=== PATIENT | female | born 1985 | race Caucasian/White ===

== ENCOUNTER 2017-07-01 12:28 | Inpatient (IN) ==
--- NOTE | 2017-07-01 13:05 | Emergency Department Note ---
Disposition Clinical Impression: Suicidal ideation Depression Qualifiers: Depression Type: unspecified Qualified Code(s): F32.9 - Major depressive disorder, single episode, unspecified Disposition: Admitted As Inpatient Time of Disposition: 16:24 Psych HPI - General Chief Complaint: ED Psychiatric Symptoms Stated Complaint: scott evsiomara Time Seen by Provider: 07/01/17 12:36 Source: patient Mode of arrival: ambulatory Limitations: no limitations Nursing Notes Reviewed: Yes Vital Signs Reviewed: Yes - History of Present Illness HPI Narrative: 31-year-old female presenting to the emergency Department chief complaint suicidal ideation. Patient has previously been admitted for similar symptoms approximately 1 year ago. Patient denies any specific plan. Patient also admits to homicidal ideation but not towards a specific person and with no specific plan. Patient denies any ingestion prior to arrival. Patient has new prescriptions for depression including BuSpar and Cymbalta. She states she recently lost her child and is therefore under an undue amount of stress. Patient denies auditory or visual hallucinations at this time. Patient denies any medical issues or concerns at this time. - Related Data Home Medications Medication Instructions Recorded Confirmed Buspirone HCl [Buspar] 15 mg PO TID 08/25/16 08/25/16 Tizanidine HCl 4 mg PO Q8H PRN 08/25/16 08/25/16 Previous Rx's Medication Instructions Recorded Duloxetine HCl [Cymbalta] 60 mg PO BID #60 capsule. 08/12/16 Gabapentin [Neurontin] 1,200 mg PO HS #90 capsule 08/12/16 Gabapentin [Neurontin] 800 mg PO 0900,1500 #120 capsule 08/12/16 Lurasidone HCl [Latuda] 160 mg PO HS #60 tablet 08/12/16 Mirtazapine [Remeron] 30 mg PO HS #60 tablet 08/12/16 Ondansetron HCl [Zofran] 4 mg PO Q6HR PRN #20 tablet 08/29/16 OxyCODONE/APAP 7.5/325 [Percocet 1 each PO Q6HR PRN #20 tablet 08/29/16 7.5/325 MG] Sulfamethoxazole/Trimeth DS 1 each PO BID #24 tablet 08/29/16 [Bactrim DS] cephALEXin [Keflex] 500 mg PO QID 10 Days capsule 12/07/16 Clindamycin [Cleocin] 450 mg PO TID 10 Days capsule 12/17/16 HYDROcodone/Acet 5/325 mg [[place] 1 tab PO Q6H PRN #6 tab 12/17/16 5-325 mg] Ondansetron ODT [Zofran ODT] 4 mg SL Q6HR PRN #14 tab.rapdis 12/18/16 Loratadine [Claritin] 10 mg PO DAILY #14 capsule 01/21/17 HYDROcodone/Acet 5/325 mg [[place] 1 tab PO Q6H PRN #8 tab 01/30/17 5-325 mg] Ondansetron ODT [Zofran ODT] 4 mg SL Q6HR PRN #12 tab.rapdis 01/30/17 Sulfamethoxazole/Trimeth DS 1 each PO BID #10 tablet 01/30/17 [Bactrim DS] Ondansetron [Zofran ODT] 8 mg SL Q8H PRN #10 tab.rapdis 04/17/17 Allergies Allergy/AdvReac Type Severity Reaction Status Date / Time ceftriaxone [From Rocephin] Allergy Anaphylaxis Verified 01/30/17 19:23 clindamycin Allergy Anaphylaxis Verified 01/30/17 19:24 diphenhydramine Allergy Hives Verified 01/30/17 19:23 [From Benadryl] divalproex sodium Allergy Hives Verified 01/30/17 19:23 [From Depakote] Doxepin Allergy Hives Verified 01/30/17 19:23 famotidine [From Pepcid] Allergy Hives Verified 01/30/17 19:23 morphine Allergy Hives Verified 01/30/17 19:23 naproxen Allergy Rash Verified 01/30/17 19:23 Penicillins Allergy Anaphylaxis Verified 01/30/17 19:23 tramadol Allergy Hives Verified 01/30/17 19:23 Tramazoline Allergy Hives Verified 01/30/17 19:23 ziprasidone [From Geodon] Allergy Hives Verified 01/21/17 02:08 sertraline [From Zoloft] AdvReac Depression Verified 12/07/16 21:51 All systems ED: reviewed and negative except as stated. Constitutional: Denies: fever, chills, weakness Eyes: Reports: as per HPI ENT ED: Reports: as per HPI Cardiovascular: Denies: chest pain, palpitations Respiratory: Denies: cough, dyspnea, wheezes Gastrointestinal: Denies: abdominal pain, diarrhea, constipation Genitourinary: Reports: as per HPI Musculoskeletal: Reports: as per HPI Integumentary: Denies: rash, abrasion, lesions Neurological: Reports: as per HPI Psychiatric: Reports: depression, suicidal thoughts, homicidal thoughts. Denies : auditory hallucinations, visual hallucinations Endocrine: Reports: as per HPI Hematological/Lymphatic: Reports: as per HPI Allergic/Immunologic: Reports: as per HPI Past Medical History - Past Medical History Attestation: Yes The following information was validated with the patient. Medical history: Reports: kidney stones Surgical history: Reports: appendectomy, cholecystectomy, herniorrhaphy, hysterectomy, ureteral stent Psychiatric history: Reports: anxiety, bipolar, depression, prior suicide attempt, previous psychiatric hospitalization DIRECTOR COMPENSATION history: Reports: polycystic ovary syndrome - Social History Smoking Status: Current every day smoker Smokeless Tobacco Status: No Alcohol use: Reports: none Drug use: Reports: marijuana Physical Exam - General Limitations: no limitations General appearance: alert, anxious - Head Head exam: atraumatic, normocephalic, normal inspection - Eye Eye exam: Present: normal appearance, PERRL - Chest Chest inspection: Present: normal inspection, symmetric chest wall rise. Absent : tenderness - Respiratory Respiratory exam: Present: normal lung sounds bilaterally. Absent: respiratory distress, wheezes - Cardiovascular Cardiovascular exam: Present: regular rate, normal rhythm, normal heart sounds - Abdominal Exam Abdominal exam: Present: soft, Non-Tender. Absent: distention, guarding, rebound - Extremities Exam Extremities exam: Present: normal inspection, full ROM - Neurological Exam Neurological exam: Present: alert, oriented X3, normal gait - Psychiatric Psychiatric exam: Present: depressed, homicidal ideation, suicidal ideation - Skin Skin exam: Present: warm, intact Course Course Narrative: 31-year-old female presenting to the emergency department with chief complaint of suicidal ideation. She denies a specific plan at this time. We will obtain basic lab work and UA and toxicology panel. Once the results have returned we will reach out to [facility] to determine disposition of the patient. - Reevaluation(s) Reevaluation #1: Patient has been accepted by one may be admitted here at [facility] for inpatient psychiatric care. Time: 16:23 Vital Signs Temperature 98.6 F 07/01/17 12:37 Pulse Rate 92 07/01/17 12:37 Respiratory Rate 20 07/01/17 12:37 Blood Pressure 161/103 07/01/17 12:37 O2 Sat by Pulse Oximetry 96 07/01/17 12:37 Temperature 98.6 F 07/01/17 12:37 Pulse Rate 92 07/01/17 12:37 Respiratory Rate 20 07/01/17 12:37 Blood Pressure 161/103 07/01/17 12:37 O2 Sat by Pulse Oximetry 96 07/01/17 12:37 Oxygen Delivery Oxygen Delivery Room Air Psych - Lab Data Result diagrams: 07/01/17 13:01 07/01/17 13:01 Lab Results 07/01/17 07/01/17 07/01/17 Range/Units 13:01 13:01 13:49 WBC 8.7 (4.3-11.1) K/mcL RBC 4.72 (3.82-4.97) M/mcL Hgb 14.7 (11.5-15.4) g/dL Hct 43.2 (35.3-44.9) % MCV 91.5 (83.0-100.0) fL MCH 31.1 (28.0-33.3) pg MCHC 34.0 (31.6-35.5) g/dL RDW 12.6 (11.5-14.5) % Plt Count 254 (140-400) K/mcL MPV 10.6 (9.4-12.4) fL Immature Gran % 0.3 (0-4) % Seg Neutrophils % 72.0 % Lymphocytes % 18.8 % Monocytes % 4.2 % Eosinophils % 3.9 % Basophils % 0.8 % Neutrophils # 6.2 (1.6-8.9) K/mcL Lymphocytes # 1.6 (0.6-4.6) K/mcL Monocytes # 0.4 (0.0-1.3) K/mcL Eosinophils # 0.3 (0.0-0.6) K/mcL Basophils # 0.1 (0.0-0.2) K/mcL Sodium 141 (136-145) mEq/L Potassium 3.3 L (3.5-4.5) mEq/L Chloride 105 (98-109) mEq/L Carbon Dioxide 25 (19-29) mEq/L BUN 4 L (7-20) mg/dL Creatinine 0.91 (0.57-1.11) mg/dL Est GFR ( Amer) > 60 (> 60) Est GFR (Non-Af Amer) > 60 (> 60) BUN/Creatinine Ratio 4 L (6-26) Glucose 149 H (70-99) mg/dL Calculated Osmolality 292 (280-300) Calcium 9.0 (8.6-10.8) mg/dL Urine Color Yellow (Yellow) Urine Clarity Cloudy A (Clear) Urine pH 7.0 (5.0-8.0) pH Units Ur Specific [place] 1.023 (1.010-1.025) Urine Protein Negative (Neg-Trace) mg/dL Urine Glucose (UA) Normal (Normal) mg/dL Urine Ketones Negative (Negative) mg/dL Urine Blood Negative (Negative) Urine Nitrite Positive A (Negative) Urine Bilirubin Negative (Negative) Urine Urobilinogen Normal (Normal) mg/dL Ur Leukocyte Esterase Negative (Negative) Urine Microscopic RBC 3-5 H (0-3) per hpf Urine Microscopic WBC 3-5 H (0-3) per hpf Ur Squamous Epith Cells Many H (None-Few) per lpf Urine Bacteria Few (None-Few) per hpf Hyaline Casts None Seen (None-Few) per lpf Urine Test (Negative) Salicylates < 5.0 L (15-30) mg/dL Urine Opiates Screen (Ijirga=244) ng/mL Acetaminophen < 1.0 L (10-30) mcg/mL Ur Barbiturates Screen (Gqysjc=932) ng/mL Ur Phencyclidine Scrn (Cutoff=25) ng/mL Ur Amphetamines Screen (Rsyvar=8571) ng/mL U Benzodiazepines Scrn (Qiskxf=807) ng/mL Urine Cocaine Screen (Cutoff= 300) ng/mL U Marijuana (THC) Screen (Cutoff = 50) ng/mL Ethyl Alcohol < 10 (0-10) mg/dL 07/01/17 07/01/17 Range/Units 13:49 13:49 WBC (4.3-11.1) K/mcL RBC (3.82-4.97) M/mcL Hgb (11.5-15.4) g/dL Hct (35.3-44.9) % MCV (83.0-100.0) fL MCH (28.0-33.3) pg MCHC (31.6-35.5) g/dL RDW (11.5-14.5) % Plt Count (140-400) K/mcL MPV (9.4-12.4) fL Immature Gran % (0-4) % Seg Neutrophils % % Lymphocytes % % Monocytes % % Eosinophils % % Basophils % % Neutrophils # (1.6-8.9) K/mcL Lymphocytes # (0.6-4.6) K/mcL Monocytes # (0.0-1.3) K/mcL Eosinophils # (0.0-0.6) K/mcL Basophils # (0.0-0.2) K/mcL Sodium (136-145) mEq/L Potassium (3.5-4.5) mEq/L Chloride (98-109) mEq/L Carbon Dioxide (19-29) mEq/L BUN (7-20) mg/dL Creatinine (0.57-1.11) mg/dL Est GFR ( Amer) (> 60) Est GFR (Non-Af Amer) (> 60) BUN/Creatinine Ratio (6-26) Glucose (70-99) mg/dL Calculated Osmolality (280-300) Calcium (8.6-10.8) mg/dL Urine Color (Yellow) Urine Clarity (Clear) Urine pH (5.0-8.0) pH Units Ur Specific [place] (1.010-1.025) Urine Protein (Neg-Trace) mg/dL Urine Glucose (UA) (Normal) mg/dL Urine Ketones (Negative) mg/dL Urine Blood (Negative) Urine Nitrite (Negative) Urine Bilirubin (Negative) Urine Urobilinogen (Normal) mg/dL Ur Leukocyte Esterase (Negative) Urine Microscopic RBC (0-3) per hpf Urine Microscopic WBC (0-3) per hpf Ur Squamous Epith Cells (None-Few) per lpf Urine Bacteria (None-Few) per hpf Hyaline Casts (None-Few) per lpf Urine Test Negative (Negative) Salicylates (15-30) mg/dL Urine Opiates Screen Negative (Dzjcqj=219) ng/mL Acetaminophen (10-30) mcg/mL Ur Barbiturates Screen Negative (Jgmibl=952) ng/mL Ur Phencyclidine Scrn Negative (Cutoff=25) ng/mL Ur Amphetamines Screen Negative (Mwvypb=9830) ng/mL U Benzodiazepines Scrn Negative (Tgpxxq=576) ng/mL Urine Cocaine Screen Negative (Cutoff= 300) ng/mL U Marijuana (THC) Screen Negative (Cutoff = 50) ng/mL Ethyl Alcohol (0-10) mg/dL Psychiatric Medical Clearance - Medical Clearance Checklist Medical History: Morbid obesity with BMI of 45.0-49.9, adult (Acute) Ureteral stone with hydronephrosis (Resolved) Flank pain (Acute) Suicidal ideation (Acute) Depressed bipolar affective disorder (Chronic) Anxiety (Chronic) Akathisia (Acute) Borderline personality disorder (Chronic) Acute psychosis (Acute) Depression (Chronic) Nicotine dependence (Acute) Medical clearance for psychiatric admission (Acute) Cellulitis, abdominal wall (Acute) UTI (urinary tract infection) (Ruled-out) Cellulitis of periumbilical region (Acute) DVT prophylaxis (Acute) Low urine output (Acute) Atypical chest pain (Inactive) Bronchitis (Inactive) Cellulitis of great toe of right foot (Inactive) Cellulitis of great toe, right (Inactive) Contact dermatitis (Inactive) Cough (Inactive) Flank pain (Inactive) Flank pain (Inactive) Flank pain (Inactive) Head ache (Inactive) Hematuria (Inactive) Hematuria (Inactive) History of kidney stones (Inactive) Marijuana abuse (Inactive) Migraine (Inactive) Nausea & vomiting (Inactive) Obesity (Inactive) Painful swallowing (Inactive) Paronychia of great toe of right foot (Inactive) Pyelonephritis (Inactive) Pyelonephritis (Inactive) Right flank pain (Inactive) Toe pain, right (Inactive) UTI (urinary tract infection) (Inactive) Upper respiratory infection (Inactive) No Social History Section defined Current Vitals: Last Vital Signs Temp 98.6 F 07/01/17 12:37 Pulse 92 07/01/17 12:37 Resp 20 07/01/17 12:37 BP 161/103 07/01/17 12:37 Pulse Ox 96 07/01/17 12:37 Psychiatric Lab Panel: Drug Levels and Toxicity 07/01/17 07/01/17 13:01 13:49 Urine Opiates Screen Negative Acetaminophen < 1.0 L Ur Barbiturates Screen Negative Ur Phencyclidine Scrn Negative Ur Amphetamines Screen Negative U Benzodiazepines Scrn Negative Urine Cocaine Screen Negative U Marijuana (THC) Screen Negative Ethyl Alcohol < 10 Abnormal Labs: Abnormal lab results Potassium 3.3 mEq/L (3.5-4.5) L 07/01/17 13:01 BUN 4 mg/dL (7-20) L 07/01/17 13:01 BUN/Creatinine Ratio 4 (6-26) L 07/01/17 13:01 Glucose 149 mg/dL (70-99) H 07/01/17 13:01 Urine Clarity Cloudy (Clear) A 07/01/17 13:49 Urine Nitrite Positive (Negative) A 07/01/17 13:49 Urine Microscopic RBC 3-5 per hpf (0-3) H 07/01/17 13:49 Urine Microscopic WBC 3-5 per hpf (0-3) H 07/01/17 13:49 Ur Squamous Epith Cells Many per lpf (None-Few) H 07/01/17 13:49 Salicylates < 5.0 mg/dL (15-30) L 07/01/17 13: Acetaminophen < 1.0 mcg/mL (10-30) L 07/01/17 13:01 Statement of Medical Clearance: I have evaluated the patient, reviewed diagnostic information, and certify that the patient's medical condition is sufficiently stable that transfer to the psychiatric unit does not pose a significant risk of deterioration.
[2017-07-01 13:16] LABS: Basophils # 0.1 K/mcL (0.0-0.2); Basophils % 0.8 %; Eosinophils # 0.3 K/mcL (0.0-0.6); Eosinophils % 3.9 %; Hematocrit 43.2 % (35.3-44.9); Hemoglobin 14.7 g/dL (11.5-15.4); Immature Granulocytes % 0.3 % (0-4); Lymphocytes # 1.6 K/mcL (0.6-4.6); Lymphocytes % 18.8 %; Mean Corpuscular Hemoglobin 31.1 pg (28.0-33.3); Mean Corpuscular Volume 91.5 fL (83.0-100.0); Mean Platelet Volume 10.6 fL (9.4-12.4); Monocytes # 0.4 K/mcL (0.0-1.3); Monocytes % 4.2 %; Neutrophils # 6.2 K/mcL (1.6-8.9); Platelet Count 254 K/mcL (140-400); Red Blood Count 4.72 M/mcL (3.82-4.97); Red Cell Distribution Width 12.6 % (11.5-14.5)
[2017-07-01 13:22] LABS: BUN/Creatinine Ratio 4 (6-26); Carbon Dioxide 25 mEq/L (19-29); Chloride 105 mEq/L (98-109); Glucose 149 mg/dL (70-99); Osmolality,Calculated 292 (280-300); Potassium 3.3 mEq/L (3.5-4.5); Sodium 141 mEq/L (136-145); eGFR For African Americans > 60 (> 60); eGFR For Non-African Americans > 60 (> 60)
[2017-07-01 13:24] LABS: Acetaminophen < 1.0 mcg/mL (10-30); Blood Urea Nitrogen 4 mg/dL (7-20); Ethanol < 10 mg/dL (0-10); Salicylate < 5.0 mg/dL (15-30)
--- NOTE | 2017-07-01 13:29 | Emergency Department Note ---
START Narrative - START START: I examined this patient and my medical decision-making was reviewed with the Resident Physician. I agree with the documented findings, disposition and treatment plan as described except to the extent set forth below. 31-year-old female presents the ER with suicidal thoughts as well as homicidal thoughts. Patient under lots of stress due to some family issues. Previous psychiatric problems in the past. Patient will need to be evaluated by psychiatry.
[2017-07-01 13:54] LABS: Bilirubin,Urine Negative (Negative); Blood,Urine Negative (Negative); Clarity,Urine Cloudy (Clear); Color,Urine Yellow (Yellow); Glucose,Urine (UA) Normal (Normal); Ketones,Urine Negative (Negative); Leukocyte Esterase,Urine Negative (Negative); Nitrite,Urine Positive (Negative); Protein,Urine Negative (Neg-Trace); Specific Gravity,Urine 1.023 (1.010-1.025); Urobilinogen,Urine Normal (Normal)
[2017-07-01 13:56] LABS: Bacteria,Urine Few per hpf (None-Few); Hyaline Casts,Urine None Seen per lpf (None-Few); Squamous Epithelial Cell,Urine Many per lpf (None-Few)
[2017-07-01 14:00] LABS: Amphetamine Screen,Urine Negative ng/mL (Cutoff=1000); Barbiturate Screen,Urine Negative ng/mL (Cutoff=200); Benzodiazepines Screen,Urine Negative ng/mL (Cutoff=200); Cannabinoid Screen,Urine Negative ng/mL (Cutoff = 50); Cocaine Screen,Urine Negative ng/mL (Cutoff= 300); Opiate Screen,Urine Negative ng/mL (Cutoff=300); Phencyclidine Screen,Urine Negative ng/mL (Cutoff=25)
[2017-07-01] MEDS ORDERED: *HR* LORazepam 1 MG TABLET PO PRN (17:23)
[2017-07-01] MEDS ORDERED: MOM Conc 10 ML UD.LIQ PO PRN (17:23)
[2017-07-01] MEDS ORDERED: *HR* LORazepam 2 MG/ML VIAL IM PRN (17:23)
[2017-07-01] MEDS ORDERED: Mag Hydrox/Al Hydrox/Simeth 30 ML UDC PO PRN (17:23)
[2017-07-01] MEDS ORDERED: Haloperidol Lactate 5 MG/ML VIAL IM PRN (17:23)
[2017-07-01] MEDS: Nicotine 21 MG PATCH.TD24 TD SCH (18:07)
[2017-07-01] MEDS: hydrOXYzine pamoate 25 MG CAPSULE PO PRN (19:24)
[2017-07-01] MEDS: traZODone 50 MG TABLET PO PRN (23:23)
[2017-07-02] MEDS: hydrOXYzine pamoate 25 MG CAPSULE PO PRN ×3 (02:55→21:45)
[2017-07-02] MEDS: Nicotine 21 MG PATCH.TD24 TD SCH (08:54)
--- NOTE | 2017-07-02 12:28 | Psychiatry History & Physical ---
Date of Encounter: 07/02/17 Time of Encounter: 12:22 History of Present Illness Patient Stated Chief Complaint: suicidal ideation Medicare Admission Attestation: For traditional Medicare patients the provided hospital inpatient services are reasonable and necessary and in the case of services not specified as inpatient -only under 42 CFR 419.22 (n), that they are appropriately provided as inpatient services in accordance 42 CFR 412.3. For Critical Access Hospital the patient may reasonably be expected to be discharged or transferred to a hospital within 96 hours after admission to the Critical Access Hospital. Admitted From: Home Plans for Post Hospital Care: Home History of Present Illness: Ms. Stafford is a 31 year old female who was admitted secondary to SI. Childrens Services recently removed children from home on the basis of suspected drug use. Client denies any drug use. Client claims her grandparents made the referral to [facility] because they do not like her new . Client has been cutting since children removed. Multiple scratch siu on abdomen. Offered Tetanus update but client reports she had one two years ago. Already linked with services. Claims she is diagnosed with "a bunch of stuff." Borderline Personality Disorder likely primary diagnosis. Denies medical problems other than recurrent kidney stones. Recently moved and only has some of her home meds. Prescribed Cymbalta and Buspar. However, client claims she does best when she also has her Latuda, along with Vistaril and low dose Seroquel for sleep. Will restart med regimen that works for her. Past Med Surg Social Fam HX - Past Medical History Medical history: kidney stones - Past Psychiatric History Psychiatric history: Reports: depression, PTSD Family psychiatric history: Unknown Family History of Suicide: Unknown - Past Surgical History Surgical History: appendectomy, cholecystectomy, hysterectomy, ureteral stent - Social History Smoking Status: Current every day smoker Smokeless Tobacco Status: No Alcohol use: none Drug use: marijuana - Family History Mother Living Status: Still Living Medications & Allergies Duloxetine HCl [Cymbalta] 60 mg PO BID #60 capsule. 08/12/16 [Rx] Tizanidine HCl 4 mg PO Q8H PRN 08/25/16 [History] Buspirone HCl [Buspar] 10 mg PO BID 07/01/17 [History] 3 Allergy/AdvReac Type Severity Reaction Status Date / Time ceftriaxone [From Rocephin] Allergy Anaphylaxis Verified 01/30/17 19:23 clindamycin Allergy Anaphylaxis Verified 01/30/17 19:24 diphenhydramine Allergy Hives Verified 01/30/17 19:23 [From Benadryl] divalproex sodium Allergy Hives Verified 01/30/17 19:23 [From Depakote] Doxepin Allergy Hives Verified 01/30/17 19:23 famotidine [From Pepcid] Allergy Hives Verified 01/30/17 19:23 morphine Allergy Hives Verified 01/30/17 19:23 naproxen Allergy Rash Verified 01/30/17 19:23 Penicillins Allergy Anaphylaxis Verified 01/30/17 19:23 tramadol Allergy Hives Verified 01/30/17 19:23 Tramazoline Allergy Hives Verified 01/30/17 19:23 ziprasidone [From Geodon] Allergy Hives Verified 01/21/17 02:08 sertraline [From Zoloft] AdvReac Depression Verified 12/07/16 21:51 Review of Systems Constitutional: Denies: fever, chills, weakness, weight change Eyes: Denies: eye pain, vision change Ears, Nose, Throat: Denies: ear pain, throat pain, dental pain, hearing loss, congestion Cardiovascular: Denies: chest pain, palpitations, dyspnea on exertion Respiratory: Denies: cough, dyspnea, wheezes Gastrointestinal: Denies: abdominal pain, nausea, vomiting, diarrhea, constipation Genitourinary male: Denies: urgency, dysuria, frequency, genital lesions Genitourinary female: Denies: urgency, dysuria, frequency, abnormal menses, dyspareunia Musculoskeletal: Denies: joint swelling, joint pain Integumentary: Denies: rash, lesions, pruritus Neurological: Denies: headache, weakness, numbness, memory loss Endocrine: Denies: fatigue, heat or cold intolerance Hematologic/Lymphatic: Denies: easy bruising, lymphadenopathy Allergic/Immunologic: Denies: urticaria, itchy eyes Mental Status Exam Patient orientation: Yes Person, Yes Time, Yes Place Level of alertness: Alert Patient appearance: Appropriate Behavior: calm, cooperative Psychomotor activity: Normal Eye contact: Maintains Eye Contact Mood description: Depressed, Irritable Affect description: congruent with mood Speech pattern: Normal rate, Normal rhythm, Normal tone Speech volume: Normal Thought process: Linear Thought content: Yes Suicidal ideation, No Homicidal ideation, No Overt delusions Perceptual disturbances: No Auditory hallucinations, No Visual hallucinations Attention span: Capable of Focused Attention Memory description: Grossly Intact Patient reliability: Reliable Historian Intelligence estimate: Average Judgment: Limited Insight: Minimal Exam - HEENT Head exam IM: Present: atraumatic Eye exam IM: Present: EOMI ENT exam IM: Present: mucous membranes moist - Neurological Neurological exam IM: Present: alert, oriented X3 - Respiratory Respiratory exam IM: Present: CTAB - GI/Abdominal GI/Abdominal exam IM: Present: normal bowel sounds - Extremities Extremities exam IM: Present: full ROM - Skin Skin exam IM: Present: normal color Results - Vital Signs Vital signs: Temp Pulse Resp BP Pulse Ox 97.4 F L 90 20 132/93 96 07/02/17 09:00 07/02/17 09:00 07/02/17 09:00 07/02/17 09:00 07/01/17 12:37 - Labs Labs: Laboratory Last Values WBC 8.7 K/mcL (4.3-11.1) 07/01/17 13:01 RBC 4.72 M/mcL (3.82-4.97) 07/01/17 13:01 Hgb 14.7 g/dL (11.5-15.4) 07/01/17 13:01 Hct 43.2 % (35.3-44.9) 07/01/17 13:01 MCV 91.5 fL (83.0-100.0) 07/01/17 13:01 MCH 31.1 pg (28.0-33.3) 07/01/17 13:01 MCHC 34.0 g/dL (31.6-35.5) 07/01/17 13:01 RDW 12.6 % (11.5-14.5) 07/01/17 13:01 Plt Count 254 K/mcL (140-400) 07/01/17 13:01 MPV 10.6 fL (9.4-12.4) 07/01/17 13:01 Immature Gran % 0.3 % (0-4) 07/01/17 13:01 Seg Neutrophils % 72.0 % 07/01/17 13:01 Lymphocytes % 18.8 % 07/01/17 13:01 Monocytes % 4.2 % 07/01/17 13:01 Eosinophils % 3.9 % 07/01/17 13:01 Basophils % 0.8 % 07/01/17 13:01 Neutrophils # 6.2 K/mcL (1.6-8.9) 07/01/17 13:01 Lymphocytes # 1.6 K/mcL (0.6-4.6) 07/01/17 13:01 Monocytes # 0.4 K/mcL (0.0-1.3) 07/01/17 13:01 Eosinophils # 0.3 K/mcL (0.0-0.6) 07/01/17 13:01 Basophils # 0.1 K/mcL (0.0-0.2) 07/01/17 13:01 Sodium 141 mEq/L (136-145) 07/01/17 13:01 Potassium 3.3 mEq/L (3.5-4.5) L 07/01/17 13: Chloride 105 mEq/L (98-109) 07/01/17 13:01 Carbon Dioxide 25 mEq/L (19-29) 07/01/17 13:01 BUN 4 mg/dL (7-20) L 07/01/17 13: Creatinine 0.91 mg/dL (0.57-1.11) 07/01/17 13:01 Est GFR ( Amer) > 60 (> 60) 07/01/17 13:01 Est GFR (Non-Af Amer) > 60 (> 60) 07/01/17 13:01 BUN/Creatinine Ratio 4 (6-26) L 07/01/17 13:01 Glucose 149 mg/dL (70-99) H 07/01/17 13: Calculated Osmolality 292 (280-300) 07/01/17 13: Calcium 9.0 mg/dL (8.6-10.8) 07/01/17 13:01 Urine Color Yellow (Yellow) 07/01/17 13:49 Urine Clarity Cloudy (Clear) A 07/01/17 13:49 Urine pH 7.0 pH Units (5.0-8.0) 07/01/17 13:49 Ur Specific [place] 1.023 (1.010-1.025) 07/01/17 13:49 Urine Protein Negative mg/dL (Neg-Trace) 07/01/17 13:49 Urine Glucose (UA) Normal mg/dL (Normal) 07/01/17 13:49 Urine Ketones Negative mg/dL (Negative) 07/01/17 13:49 Urine Blood Negative (Negative) 07/01/17 13:49 Urine Nitrite Positive (Negative) A 07/01/17 13:49 Urine Bilirubin Negative (Negative) 07/01/17 13:49 Urine Urobilinogen Normal mg/dL (Normal) 07/01/17 13:49 Ur Leukocyte Esterase Negative (Negative) 07/01/17 13:49 Urine Microscopic RBC 3-5 per hpf (0-3) H 07/01/17 13:49 Urine Microscopic WBC 3-5 per hpf (0-3) H 07/01/17 13:49 Ur Squamous Epith Cells Many per lpf (None-Few) H 07/01/17 13:49 Urine Bacteria Few per hpf (None-Few) 07/01/17 13:49 Hyaline Casts None Seen per lpf (None-Few) 07/01/17 13:49 Urine Test Negative (Negative) 07/01/17 13:49 Salicylates < 5.0 mg/dL (15-30) L 07/01/17 13:01 Urine Opiates Screen Negative ng/mL (Dehfuu=289) 07/01/17 13:49 Acetaminophen < 1.0 mcg/mL (10-30) L 07/01/17 13:01 Ur Barbiturates Screen Negative ng/mL (Dcvojs=599) 07/01/17 13:49 Ur Phencyclidine Scrn Negative ng/mL (Cutoff=25) 07/01/17 13:49 Ur Amphetamines Screen Negative ng/mL (Zhwsdl=3576) 07/01/17 13:49 U Benzodiazepines Scrn Negative ng/mL (Yrtceb=180) 07/01/17 13:49 Urine Cocaine Screen Negative ng/mL (Cutoff= 300) 07/01/17 13:49 U Marijuana (THC) Screen Negative ng/mL (Cutoff = 50) 07/01/17 13:49 Ethyl Alcohol < 10 mg/dL (0-10) 07/01/17 13:01 Assessment and Plan (1) Borderline personality disorder Current visit: No Status: Chronic Plan: Admit inpatient for safety and stabilization, Close observation, Suicide Precautions per unit protocol, Encourage participation in unit milieu, Group Therapy, Monitor sleep, Monitor appetite Risks, benefits, side effects, alternatives discussed w/pt: Yes Patient agreeable to treatment: Yes Plans for Post Hospital Care: Home Estimated Length of Stay (Days): 4
[2017-07-02] MEDS: tiZANidine 4 MG TABLET PO PRN (14:45)
[2017-07-02] MEDS: Ibuprofen 400 MG TABLET PO PRN (15:50)
[2017-07-03] MEDS: hydrOXYzine pamoate 25 MG CAPSULE PO PRN ×2 (03:55→20:27)
[2017-07-03] MEDS: tiZANidine 4 MG TABLET PO PRN ×2 (03:55→20:27)
[2017-07-03] MEDS ORDERED: Lurasidone 20 MG TABLET PO SCH (09:00)
[2017-07-03] MEDS: Nicotine 21 MG PATCH.TD24 TD SCH (09:24)
--- NOTE | 2017-07-03 14:59 | Psychiatry Progress Note ---
Date of Encounter: 07/03/17 Time of Encounter: 14:53 Subjective Interval history: Client suspected of drug use on the unit. Peer overheard her say he was giving her heroin and reported it to staff. Staff attempted to drug test her but she refused. Drug test at time of admission was negative so would have been useful to have a repeat. Client reportedly asking peers to urinate for her but unclear if this is fact or not. According to staff her behavior did not change at all nor did she necessarily appear to be under the influence of any substances. Irritable with staff. Claims meds not ordered right. Claims this service writer did not listen to her and ordered her Latuda for the daytime when she has to take it at night (told this service writer she needs to take Seroquel at night). Rather gamey. Still endorsing SI "but I'll leave whenever you tell me to." Discussed what a safe discharge plan would look like. Intends to return to live with . Now that she is back on her home meds will look at discharge at the end of the week. Client encouraged to engage in treatment while she is here to make the most of her hospital stay. Review of Systems Constitutional: Denies: fever, chills, weakness, weight change Eyes: Denies: eye pain, vision change Ears, Nose, Throat: Denies: ear pain, throat pain, dental pain, hearing loss, congestion Cardiovascular: Denies: chest pain, palpitations, dyspnea on exertion Respiratory: Denies: cough, dyspnea, wheezes Gastrointestinal: Denies: abdominal pain, nausea, vomiting, diarrhea, constipation Musculoskeletal: Denies: joint swelling, joint pain Neurological: Denies: headache, weakness, numbness, memory loss Objective: Exam Patient orientation: Yes Person, Yes Time, Yes Place Level of alertness: Alert Patient appearance: Unkempt Behavior: calm Psychomotor activity: Normal Eye contact: Maintains Eye Contact Mood description: Irritable Affect description: congruent with mood Speech pattern: Normal rate, Normal rhythm, Normal tone Speech volume: Normal Thought process: Linear Thought content: Yes Suicidal ideation, No Homicidal ideation, No Overt delusions Perceptual disturbances: No Auditory hallucinations, No Visual hallucinations Judgment: Limited Insight: Minimal Results - Vital Signs Vital Signs: Temp Pulse Resp BP Pulse Ox 98.1 F 81 20 141/94 96 07/03/17 09:00 07/03/17 09:00 07/03/17 09:00 07/03/17 09:00 07/01/17 12:37 Assessment and Plan (1) Borderline personality disorder Current visit: No Status: Chronic Plan: Continue hospitalization, Close observation, Suicide Precautions per unit protocol, Encourage participation in unit milieu, Group Therapy, Monitor sleep, Monitor appetite Risks, benefits, side effects, alternatives discussed w/pt: Yes Patient agreeable to treatment: Yes Consult Discharge Plan - Plan Referrals: [facility] [Outside] - 07/12/17 1:30 pm (The above appointment is with Li Armstrong Daily for outpatient psychiatric assessment and medication management services.)
[2017-07-03] MEDS: traZODone 50 MG TABLET PO PRN (20:27)
[2017-07-04] MEDS: Nicotine 21 MG PATCH.TD24 TD SCH (09:12)
--- NOTE | 2017-07-04 10:25 | Psychiatry Progress Note ---
Date of Encounter: 07/04/17 Time of Encounter: 10:21 Subjective Interval history: Aysha is still endorsing depressed mood and SI. Tends to be irritable with staff. More pleasant with this typewriter aligner but she definitely puts on a sad face. Spending all of her time in bed but will come out for snacks. Boyfriend visited and brought her a ton of food as well. Client is very vague as to what her plan is. States she will leave the hospital whenever someone discharges her but then suggests she is not ready. Discussed taking more of an active role in her treatment. Clinical presentation is more medical field representative of characterologicial issues than genuine mood disorder. Still refusing to give a urine sample and continues to deny any drug use. Review of Systems Constitutional: Denies: fever, chills, weakness, weight change Eyes: Denies: eye pain, vision change Ears, Nose, Throat: Denies: ear pain, throat pain, dental pain, hearing loss, congestion Cardiovascular: Denies: chest pain, palpitations, dyspnea on exertion Respiratory: Denies: cough, dyspnea, wheezes Gastrointestinal: Denies: abdominal pain, nausea, vomiting, diarrhea, constipation Musculoskeletal: Denies: joint swelling, joint pain Neurological: Denies: headache, weakness, numbness, memory loss Objective: Exam Patient orientation: Yes Person, Yes Time, Yes Place Level of alertness: Alert Patient appearance: Appropriate Behavior: calm, cooperative Psychomotor activity: Normal Eye contact: Maintains Eye Contact Mood description: Depressed Affect description: congruent with mood Speech pattern: Normal rate, Normal rhythm, Normal tone Speech volume: Normal Thought process: Linear Thought content: Yes Suicidal ideation, No Homicidal ideation, No Overt delusions Perceptual disturbances: No Auditory hallucinations, No Visual hallucinations Judgment: Limited Insight: Minimal Results - Vital Signs Vital Signs: Temp Pulse Resp BP Pulse Ox 97.8 F 99 16 140/95 96 07/04/17 08:29 07/04/17 08:29 07/04/17 08:29 07/04/17 08:29 07/01/17 12:37 Assessment and Plan (1) Borderline personality disorder Current visit: No Status: Chronic Plan: Continue hospitalization, Close observation, Suicide Precautions per unit protocol, Encourage participation in unit milieu, Group Therapy, Monitor sleep, Monitor appetite Risks, benefits, side effects, alternatives discussed w/pt: Yes Patient agreeable to treatment: Yes Consult Discharge Plan - Plan Referrals: [facility] [Outside] - 07/12/17 1:30 pm (The above appointment is with Li Armstrong Daily for outpatient psychiatric assessment and medication management services.)
[2017-07-04] MEDS: hydrOXYzine pamoate 25 MG CAPSULE PO PRN ×2 (15:03→21:21)
[2017-07-04] MEDS: Ibuprofen 400 MG TABLET PO PRN ×2 (15:03→21:20)
[2017-07-04] MEDS: tiZANidine 4 MG TABLET PO PRN (15:03)
[2017-07-04] MEDS ORDERED: Lurasidone 20 MG TABLET PO SCH (21:00)
[2017-07-04] MEDS: traZODone 50 MG TABLET PO PRN (21:20)
[2017-07-05] MEDS: tiZANidine 4 MG TABLET PO PRN (00:53)
[2017-07-05] MEDS: Nicotine 21 MG PATCH.TD24 TD SCH (09:12)
[2017-07-05 09:34] VITALS: BP 145/94
--- NOTE | 2017-07-05 11:21 | Discharge Summary ---
Date of Encounter: 07/05/17 Time of Encounter: :17 Diagnosis - Discharge Diagnosis (1) Borderline personality disorder Status: Chronic Medications - Discharge Medications Prescriptions: Buspirone HCl [Buspar] 10 mg PO BID #28 tablet DULoxetine [Cymbalta] 60 mg PO BID #14 capsule. hydrOXYzine pamoate [HydrOXYzine Pamoate] 25 mg PO TID PRN #21 capsule PRN Reason: Anxiety hydrOXYzine pamoate [HydrOXYzine Pamoate] 75 mg PO HS PRN #21 capsule PRN Reason: Insomnia Lurasidone [Latuda] 60 mg PO HS #21 tablet Quetiapine Fumarate [Seroquel] 25 mg PO HS #7 tablet traZODone [TraZODone] 50 mg PO HS PRN #7 tablet PRN Reason: Insomnia Tizanidine HCl 4 mg PO Q8H PRN 08/25/16 [History] Buspirone HCl [Buspar] 10 mg PO BID 07/01/17 [History] Buspirone HCl [Buspar] 10 mg PO BID #28 tablet 07/05/17 [Rx] DULoxetine [Cymbalta] 60 mg PO BID #14 capsule. 07/05/17 [Rx] Ibuprofen [Motrin] 400 mg PO Q6HR PRN tablet 07/05/17 [Rx] Lurasidone [Latuda] 60 mg PO HS #21 tablet 07/05/17 [Rx] Nicotine Patch [Nicoderm] 21 mg TD DAILY patch.td24 07/05/17 [Rx] Quetiapine Fumarate [Seroquel] 25 mg PO HS #7 tablet 07/05/17 [Rx] hydrOXYzine pamoate [HydrOXYzine Pamoate] 25 mg PO TID PRN #21 capsule 07/05/17 [Rx] hydrOXYzine pamoate [HydrOXYzine Pamoate] 75 mg PO HS PRN #21 capsule 07/05/17 [ Rx] traZODone [TraZODone] 50 mg PO HS PRN #7 tablet 07/05/17 [Rx] 3 Allergy/AdvReac Type Severity Reaction Status Date / Time ceftriaxone [From Rocephin] Allergy Anaphylaxis Verified 01/30/17 19:23 clindamycin Allergy Anaphylaxis Verified 01/30/17 19:24 diphenhydramine Allergy Hives Verified 01/30/17 19:23 [From Benadryl] divalproex sodium Allergy Hives Verified 01/30/17 19:23 [From Depakote] Doxepin Allergy Hives Verified 01/30/17 19:23 famotidine [From Pepcid] Allergy Hives Verified 01/30/17 19:23 morphine Allergy Hives Verified 01/30/17 19:23 naproxen Allergy Rash Verified 01/30/17 19:23 Penicillins Allergy Anaphylaxis Verified 01/30/17 19:23 tramadol Allergy Hives Verified 01/30/17 19:23 Tramazoline Allergy Hives Verified 01/30/17 19:23 ziprasidone [From Geodon] Allergy Hives Verified 01/21/17 02:08 sertraline [From Zoloft] AdvReac Depression Verified 12/07/16 21:51 Provider Date of admission: 07/01/17 16:20 Primary care physician: PCP NONE Discharging clinician: Lynda Brown Assessment and Plan - Patient/Caregiver Discharge Instructions Activity: resume usual activities as tolerated Diet: regular diet - Follow up Plan Follow up with: [facility] [Outside] - 07/10/17 1:00 pm (The above appointment is with [facility] for case management and mental joby counseling services in your home. You will also see Li Armstrong Daily for outpatient psychiatric assessment and medication management services on 07/12/2017 at 1:30pm.) Functional capacity at discharge: independent ambulation Overall status at discharge: Stable Disposition: Home, Self-Care Hospital Course Hospital course: Ms. Stafford is a 31 year old female who was admitted secondary to SI and cutting behaviors at home. She was started back on a medication regimen she felt had been successful for her in the past. After a few days on these medications she was feeling stable and ready to leave. She denied SI at the time of discharge. She slept in bed most of her inpatient stay. She was irritable with staff. She and her boyfriend were suspected of doing drugs on the unit but Aysha refused any urine tox screens and her behaviors/clinical presentation never changed. She was already linked with providers and appointments were scheduled for her follow-ups prior to discharge. - Time Spent with Patient Total time spent providing and/or coordinating discharge services: Quality - Multiple Antipsychotics Patient discharged on 2 or more antipsychotic medications: Yes - Justification Documentation of: History 3 failed trials of monotherapy (Seroquel, Latuda, Haldol) Procedures - Procedures Procedures: Medication Management, Crisis Stabilization, Supportive Therapy, Group Therapy Mental Status Exam - Mental Status Exam Patient orientation: Yes Person, Yes Time, Yes Place Level of alertness: Alert Patient appearance: Appropriate Behavior: calm Psychomotor activity: Normal Eye contact: Maintains Eye Contact Mood description: Irritable Affect description: congruent with mood Speech pattern: Normal rate, Normal rhythm, Normal tone Speech Volume: Normal Thought process: Linear, Goal Oriented Thought Content: No Suicidal ideation, No Homicidal ideation, No Overt delusions Perceptual Disturbances: No Auditory hallucinations, No Visual hallucinations Judgment: Limited Insight: Minimal
== END 2017-07-05 13:35 | disposition home or self-care (01) | DRG 752 ==
LOC: EMEROO 12:28 → 1ANU 16:20
PROVIDERS: ADMIT Psychiatry & Neurology Psychiatry; ATTEND Psychiatry & Neurology Psychiatry

== ENCOUNTER 2018-01-15 14:30 | Inpatient (IN) ==
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
[2018-01-15 15:14] LABS: Basophils # 0.1 K/mcL (0.0-0.2); Basophils % 0.7 %; Eosinophils # 0.3 K/mcL (0.0-0.6); Eosinophils % 3.5 %; Hematocrit 42.6 % (35.3-44.9); Hemoglobin 14.5 g/dL (11.5-15.4); Immature Granulocytes % 0.4 % (0-4); Lymphocytes # 1.9 K/mcL (0.6-4.6); Lymphocytes % 22.6 %; Mean Corpuscular Hemoglobin 31.1 pg (28.0-33.3); Mean Corpuscular Volume 91.4 fL (83.0-100.0); Mean Platelet Volume 10.4 fL (9.4-12.4); Monocytes # 0.4 K/mcL (0.0-1.3); Monocytes % 4.5 %; Neutrophils # 5.6 K/mcL (1.6-8.9); Platelet Count 255 K/mcL (140-400); Red Blood Count 4.66 M/mcL (3.82-4.97); Segmented Neutrophils % 68.3 %
[2018-01-15] MEDS ORDERED: Ondansetron 4 MG/2 ML VIAL IVP ONE ×2 (15:30→17:59)
[2018-01-15] MEDS ORDERED: *HR* FentaNYL (PF) 100 MCG/2 ML VIAL IVP ONE ×2 (15:30→19:03)
[2018-01-15 15:35] LABS: BUN/Creatinine Ratio 13 (6-26); Blood Urea Nitrogen 8 mg/dL (6-20); Calcium 8.9 mg/dL (8.6-10.3); Carbon Dioxide 30 mEq/L (23-29); Chloride 104 mEq/L (98-107); Glucose 85 mg/dL (70-105); Osmolality,Calculated 288 (280-300); Sodium 140 mEq/L (136-145); eGFR For African Americans > 60 (> 60); eGFR For Non-African Americans > 60 (> 60)
--- NOTE | 2018-01-15 16:14 | Emergency Department Note ---
Disposition Clinical Impression: Facial swelling Disposition: Still a Patient Referrals: NONE,PCP [Primary Care Provider] - Forms: ED Satisfaction Letter General Adult HPI - General Chief complaint: ED Dental/Oral Stated complaint: facial swellings Time Seen by Provider: 01/15/18 14:34 Source: patient, EMS Limitations: no limitations - History of Present Illness Pain Scale: 10 - Related Data Home Medications Medication Instructions Recorded Confirmed Tizanidine HCl 4 mg PO Q8H PRN 08/25/16 07/01/17 Buspirone HCl [Buspar] 10 mg PO BID 07/01/17 07/01/17 Previous Rx's Medication Instructions Recorded Buspirone HCl [Buspar] 10 mg PO BID #28 tablet 07/05/17 DULoxetine [Cymbalta] 60 mg PO BID #14 capsule. 07/05/17 Ibuprofen [Motrin] 400 mg PO Q6HR PRN tablet 07/05/17 Lurasidone [Latuda] 60 mg PO HS #21 tablet 07/05/17 Nicotine Patch [Nicoderm] 21 mg TD DAILY patch.td24 07/05/17 Quetiapine Fumarate [Seroquel] 25 mg PO HS #7 tablet 07/05/17 hydrOXYzine pamoate [HydrOXYzine 25 mg PO TID PRN #21 capsule 07/05/17 Pamoate] hydrOXYzine pamoate [HydrOXYzine 75 mg PO HS PRN #21 capsule 07/05/17 Pamoate] traZODone [TraZODone] 50 mg PO HS PRN #7 tablet 07/05/17 Ondansetron ODT [Zofran ODT] 4 mg SL Q6HR PRN #15 tab.rapdis 07/15/17 Phenazopyridine HCl 200 mg PO TIDAC 2 Days tablet 07/15/17 Sulfamethoxazole/Trimeth DS 1 each PO BID 14 Days tablet 07/15/17 [Bactrim DS] Buspirone HCl [Buspar] 10 mg PO BID #60 tablet 07/25/17 Duloxetine HCl [Cymbalta] 60 mg PO BID #60 capsule. 07/25/17 Ibuprofen 800 mg PO Q6HR PRN #30 tablet 07/25/17 Lurasidone HCl [Latuda] 80 mg PO DAILY #30 tablet 07/25/17 Quetiapine Fumarate [SEROquel] 75 mg PO HS #30 tablet 07/25/17 Tizanidine HCl [Zanaflex] 4 mg PO BID #60 cap 07/25/17 hydrOXYzine pamoate [HydrOXYzine 25 mg PO AD #30 capsule 07/25/17 Pamoate] traZODone [TraZODone] 50 mg PO BID PRN #30 tablet 07/25/17 Ondansetron ODT [Zofran ODT] 4 mg SL Q6HR PRN #14 tab.rapdis 11/11/17 Ibuprofen [Motrin] 600 mg PO Q6HR PRN #28 tab 11/16/17 Allergies Allergy/AdvReac Type Severity Reaction Status Date / Time ceftriaxone [From Rocephin] Allergy Anaphylaxis Verified 07/25/17 11:04 clindamycin Allergy Anaphylaxis Verified 07/25/17 11:04 diphenhydramine Allergy Hives Verified 07/25/17 11:04 [From Benadryl] divalproex sodium Allergy Hives Verified 07/25/17 11:04 [From Depakote] Doxepin Allergy Hives Verified 07/25/17 11:04 famotidine [From Pepcid] Allergy Hives Verified 07/25/17 11:04 morphine Allergy Hives Verified 07/25/17 11:04 naproxen Allergy Rash Verified 07/25/17 11:04 Penicillins Allergy Anaphylaxis Verified 07/25/17 11:04 tramadol Allergy Hives Verified 07/25/17 11:04 Tramazoline Allergy Hives Verified 07/25/17 11:04 ziprasidone [From Geodon] Allergy Hives Verified 07/25/17 11:04 sertraline [From Zoloft] AdvReac Depression Verified 07/25/17 11:04 Constitutional: Reports: fever (Tactile). Denies: chills Eyes: Denies: eye pain, vision change ENT ED: Reports: dental pain. Denies: ear pain, throat pain, dysphagia Cardiovascular: Denies: chest pain Respiratory: Denies: cough, dyspnea Gastrointestinal: Reports: nausea. Denies: abdominal pain, vomiting Genitourinary: Denies: urgency, dysuria Musculoskeletal: Denies: back pain, neck pain Integumentary: Denies: rash, abrasion, lesions Neurological: Denies: headache Past Medical History - Past Medical History Medical history: Reports: kidney stones Surgical history: Reports: appendectomy, cholecystectomy, hysterectomy, ureteral stent Psychiatric history: Reports: depression, PTSD [employer] history: Reports: polycystic ovary syndrome - Social History Smoking Status: Current every day smoker Smokeless Tobacco Status: No Alcohol use: Reports: rarely Drug use: Reports: none Physical Exam - General Limitations: no limitations General appearance: alert, in no apparent distress Course Vital Signs Temperature 0 F L 01/15/18 14:31 Pulse Rate 88 01/15/18 14:31 Respiratory Rate 18 01/15/18 14:31 Blood Pressure 182/92 01/15/18 14:31 O2 Sat by Pulse Oximetry 99 01/15/18 14:31 Temperature 0 F L 01/15/18 14:31 Pulse Rate 88 01/15/18 14:31 Respiratory Rate 18 01/15/18 14:31 Blood Pressure 182/92 01/15/18 14:31 O2 Sat by Pulse Oximetry 99 01/15/18 14:31 Oxygen Delivery Oxygen Delivery Room Air Medical Decision Making - Lab Data Result diagrams: 01/15/18 14:56 01/15/18 14:56 Lab Results 01/15/18 01/15/18 Range/Units 14:56 14:56 WBC 8.2 (4.3-11.1) K/mcL RBC 4.66 (3.82-4.97) M/mcL Hgb 14.5 (11.5-15.4) g/dL Hct 42.6 (35.3-44.9) % MCV 91.4 (83.0-100.0) fL MCH 31.1 (28.0-33.3) pg MCHC 34.0 (31.6-35.5) g/dL RDW 13.0 (11.5-14.5) % Plt Count 255 (140-400) K/mcL MPV 10.4 (9.4-12.4) fL Immature Gran % 0.4 (0-4) % Seg Neutrophils % 68.3 % Lymphocytes % 22.6 % Monocytes % 4.5 % Eosinophils % 3.5 % Basophils % 0.7 % Neutrophils # 5.6 (1.6-8.9) K/mcL Lymphocytes # 1.9 (0.6-4.6) K/mcL Monocytes # 0.4 (0.0-1.3) K/mcL Eosinophils # 0.3 (0.0-0.6) K/mcL Basophils # 0.1 (0.0-0.2) K/mcL Sodium 140 (136-145) mEq/L Potassium 4.0 (3.5-5.1) mEq/L Chloride 104 (98-107) mEq/L Carbon Dioxide 30 H (23-29) mEq/L BUN 8 (6-20) mg/dL Creatinine 0.60 (0.60-1.20) mg/dL Est GFR ( Amer) > 60 (> 60) Est GFR (Non-Af Amer) > 60 (> 60) BUN/Creatinine Ratio 13 (6-26) Glucose 85 (70-105) mg/dL Calculated Osmolality 288 (280-300) Calcium 8.9 (8.6-10.3) mg/dL Attestation Statement - Attestation Attestation: I examined this patient and my medical decision-making was reviewed with the Resident Physician. I agree with the documented findings, disposition and treatment plan as described except to the extent set forth below. 32 year old meng santos to the ED with left sided facial pain which appears to be coming from a rotting tooth and tongue swelling My concern is for ANUG "trench mouth". We will start infectious workup an then CT images and IV ABX and like trasnfer to [facility] for further mamangement
[2018-01-15] MEDS ORDERED: MetroNIDAZOLE 500 MG/100 ML 500 MG/100 ML BAG IVPB ONE (18:30)
[2018-01-15] MEDS ORDERED: Ketorolac 15 MG/ML VIAL IVP ONE (19:51)
[2018-01-15] MEDS ORDERED: Naloxone 0.4 MG/ML INJ IVP PRN (20:34)
--- NOTE | 2018-01-15 21:02 | Internal Med History&Physical ---
Date of Encounter: 01/15/18 Time of Encounter: 20:00 Internal Medicine - H&P: HPI Chief complaint: Left facial swelling Admitted From: Home Plans for Post Hospital Care: Home History of present illness: Ms. Stafford is a 32 year old female present to ER for left facial swelling and pain for 3 days. Past medical history is significant for bipolar disorder, depression, anxiety. Past surgical history include cholecystectomy, appendectomy, and hysterectomy. Patient said she started to have left facial swelling and the pain for about 3 days. Patient denies toothache at the beginning but feels toothache right now. The pain and swelling is getting worse although she take Levaquin by mouth at home. Patient complaining of headache, severe pain on the left jaw. She has subjective fever. Patient complaint nausea and vomited several times, the vomiting are fluid, no blood in it. Patient denies sore throat. Patient denies drooling, difficulty breathing, difficulty swallowing. Past Med Surg Social Fam HX - Past Medical History Medical history: kidney stones Psychiatric history: depression, PTSD - Past Surgical History Surgical History: appendectomy, cholecystectomy, hysterectomy, ureteral stent - Social History Smoking Status: Current every day smoker Smokeless Tobacco Status: No Alcohol use: rarely Drug use: none - Family History Mother Living Status: Still Living Internal Medicine - H&P: Meds Tizanidine HCl 4 mg PO Q8H PRN 08/25/16 [History] DULoxetine [Cymbalta] 60 mg PO BID #14 capsule. 07/05/17 [Rx] hydrOXYzine pamoate [HydrOXYzine Pamoate] 25 mg PO TID PRN #21 capsule 07/05/17 [Rx] Buspirone HCl [Buspar] 10 mg PO BID #60 tablet 07/25/17 [Rx] Quetiapine Fumarate [Seroquel] 50 mg PO HS 01/15/18 [History] 3 Allergy/AdvReac Type Severity Reaction Status Date / Time ceftriaxone [From Rocephin] Allergy Anaphylaxis Verified 01/15/18 18:03 clindamycin Allergy Anaphylaxis Verified 01/15/18 18:03 diphenhydramine Allergy Hives Verified 01/15/18 18:03 [From Benadryl] divalproex sodium Allergy Hives Verified 01/15/18 18:03 [From Depakote] Doxepin Allergy Hives Verified 01/15/18 18:03 famotidine [From Pepcid] Allergy Hives Verified 01/15/18 18:03 morphine Allergy Hives Verified 01/15/18 18:03 naproxen Allergy Rash Verified 01/15/18 18:03 Penicillins Allergy Anaphylaxis Verified 01/15/18 18:03 tramadol Allergy Hives Verified 01/15/18 18:03 Tramazoline Allergy Hives Verified 01/15/18 18:03 ziprasidone [From Geodon] Allergy Hives Verified 01/15/18 18:03 sertraline [From Zoloft] AdvReac Depression Verified 01/15/18 18:03 All Systems PM: A 10-system review of systems was performed and is negative for pertinent findings except as documented above in the HPI. - Constitutional Vitals: Temp Pulse Resp BP Pulse Ox 98.0 F 81 16 135/84 92 01/15/18 20:27 01/15/18 20:27 01/15/18 20:27 01/15/18 20:27 01/15/18 20:27 General appearance: Present: mild distress, A&O X 3, answers questions appropriately - Head Head exam: Present: atraumatic, normocephalic Additional comments: Left jaw softer tissue swelling, skin warmth, tenderness. No skin redness. No open wound. Patient cannot open mouth widely because of pain. - Eye Eye exam: Present: PERRL, conjuntiva pink, sclera anicteric Pupils: Present: PERRL - Neck Neck exam general surgery: Present: supple, trachea midline. Absent: lymphadenopathy - Respiratory Respiratory exam: Present: CTAB. Absent: accessory muscle use, rales, rhonchi, wheezes - Cardiovascular Cardiovascular exam: Present: RRR, +S1, +S2. Absent: diastolic murmur, gallop, rubs, systolic murmur - GI/Abdominal GI/Abdominal exam: Present: normal bowel sounds, soft, no peritoneal signs. Absent: distended, tenderness - Extremities Exam Extremities exam: Present: warm, radial pulses palpable and symmetrical. Absent : calf tenderness, cyanotic, pedal edema - Neurological Exam Neurological exam: Present: CN II-XII intact, oriented X3, no focal deficits. Absent: pronater drift, facial droop, speech deficit - Skin Skin exam: Present: dry, intact Internal Med - H&P Results - Labs CBC & Chem 7: 01/15/18 14:56 01/15/18 14:56 - Assessment and plan (1) Cellulitis of buccal space of mouth Current Visit: Yes Status: Acute Assessment and plan: CT facial has been done. Shows: Left buccal cellulitis. No CT evidence of odontogenic abscess with technical limitations. Patient failed outpatient by mouth antibiotic treatment. - Place patient on antibiotic with Vanco, Cipro, and Flagyl. - Follow up blood culture - Symptomatic treatment for pain, nausea, or fever - Closely monitor patient (2) DVT prophylaxis Current Visit: No Status: Acute Assessment and plan: Heparin subcutaneously - Time Spent With Patient Total time spent is greater than 50% in coordination of care (as documented) at patient's floor/unit and/or counseling patient: 40 minutes Greater than 35 minutes
[2018-01-15] MEDS: Acetaminophen 325 MG TABLET PO PRN (21:33)
[2018-01-15] MEDS: tiZANidine 4 MG TABLET PO PRN (21:33)
[2018-01-16] MEDS: MetroNIDAZOLE 500 MG/100 ML 500 MG/100 ML BAG IVPB SCH ×3 (01:46→17:26)
[2018-01-16] MEDS: *HR* HYDROcodone/Acet 5/325 mg TABLET PO PRN ×4 (01:51→21:29)
[2018-01-16] MEDS: Ondansetron 4 MG/2 ML VIAL IVP PRN ×2 (01:52→15:25)
[2018-01-16] MEDS: Acetaminophen 325 MG TABLET PO PRN ×2 (04:27→12:56)
[2018-01-16] MEDS: *HR* Heparin 5,000 UNIT/ML VIAL SQ SCH ×3 (05:30→18:34)
[2018-01-16 06:34] LABS: Basophils % 0.5 %; Eosinophils # 0.3 K/mcL (0.0-0.6); Eosinophils % 3.3 %; Hematocrit 38.2 % (35.3-44.9); Immature Granulocytes % 0.3 % (0-4); Lymphocytes # 1.1 K/mcL (0.6-4.6); Lymphocytes % 14.5 %; Mean Corpuscular Hemoglobin 30.6 pg (28.0-33.3); Mean Corpuscular Volume 89.9 fL (83.0-100.0); Mean Platelet Volume 10.4 fL (9.4-12.4); Monocytes # 0.3 K/mcL (0.0-1.3); Monocytes % 3.6 %; Neutrophils # 5.9 K/mcL (1.6-8.9); Platelet Count 236 K/mcL (140-400); Red Blood Count 4.25 M/mcL (3.82-4.97); Red Cell Distribution Width 12.9 % (11.5-14.5); Segmented Neutrophils % 77.8 %
[2018-01-16 07:37] LABS: BUN/Creatinine Ratio 14 (6-26); Blood Urea Nitrogen 8 mg/dL (6-20); Calcium 8.5 mg/dL (8.6-10.3); Carbon Dioxide 30 mEq/L (23-29); Chloride 104 mEq/L (98-107); Glucose 108 mg/dL (70-105); Osmolality,Calculated 287 (280-300); Potassium 4.2 mEq/L (3.5-5.1); Sodium 139 mEq/L (136-145); eGFR For African Americans > 60 (> 60); eGFR For Non-African Americans > 60 (> 60)
[2018-01-16] MEDS: Nicotine 21 MG PATCH.TD24 TD SCH (08:38)
--- NOTE | 2018-01-16 10:02 | Internal Med Progress Note ---
Date of Encounter: 01/16/18 Time of Encounter: 09:56 - Assessment and plan (1) Cellulitis of buccal space of mouth Current Visit: Yes Status: Acute Assessment and plan: Facial CT completed shows left pupil cellulitis no CT evidence of odontogenic abscess with technical limitation patient failed outpatient oral antibiotic treatment We will continue with vancomycin and Cipro and Flagyl-pending blood cultures Symptomatic treatment pain nausea and fever Monitor patient's airway (2) DVT prophylaxis Current Visit: No Status: Acute Assessment and plan: Heparin subcutaneously - Time Spent With Patient Total time spent is greater than 50% in coordination of care (as documented) at patient's floor/unit and/or counseling patient: - Subjective Interval history: This patient is new to me I did review medical records. Presently airway patent trachea midline, no drooling she is able to handle secretions and maintain airway. Complains of R sided facial pain - Constitutional Vitals: Temp Pulse Resp BP Pulse Ox 97.7 F 75 14 118/70 96 01/16/18 06:27 01/16/18 06:27 01/16/18 06:27 01/16/18 06:27 01/16/18 06:27 General appearance: Present: mild distress, A&O X 3, morbidly obese, answers questions appropriately - Head Head exam: Present: atraumatic, normocephalic - Expanded Head Exam Head exam expanded: Present: general tenderness (has swelling to L side of face and neck trachea midline ) - Eye Eye exam: Present: periorbital swelling, PERRL, conjuntiva pink, sclera anicteric Pupils: Present: PERRL - Neck Neck exam general surgery: Present: supple, trachea midline. Absent: lymphadenopathy - Cardiovascular Cardiovascular exam: Present: RRR, +S1, +S2. Absent: diastolic murmur, gallop, rubs, systolic murmur - GI/Abdominal GI/Abdominal exam: Present: normal bowel sounds, soft, no peritoneal signs. Absent: distended, tenderness Internal Medicine: Result - Labs CBC & Chem 7: 01/16/18 06:06 01/16/18 06:06 Labs: Short CBC 01/16/18 Range/Units 06:06 WBC 7.6 (4.3-11.1) K/mcL Hgb 13.0 D (11.5-15.4) g/dL Hct 38.2 (35.3-44.9) % Plt Count 236 (140-400) K/mcL Neutrophils # 5.9 (1.6-8.9) K/mcL BMP 01/16/18 06:06 Sodium 139 Potassium 4.2 Chloride 104 Carbon Dioxide 30 H BUN 8 Creatinine 0.59 L Glucose 108 H Calcium 8.5 L Consult Discharge Plan - Plan Referrals: NONE,PCP [Primary Care Provider] -
[2018-01-16] MEDS: hydrOXYzine pamoate 25 MG CAPSULE PO PRN ×2 (12:56→21:30)
[2018-01-16] MEDS: tiZANidine 4 MG TABLET PO PRN (21:30)
[2018-01-17] MEDS: MetroNIDAZOLE 500 MG/100 ML 500 MG/100 ML BAG IVPB SCH ×3 (00:33→17:21)
[2018-01-17] MEDS: Ondansetron 4 MG/2 ML VIAL IVP PRN ×4 (00:44→17:20)
[2018-01-17 02:15] LABS: Basophils % 0.6 %; Eosinophils # 0.3 K/mcL (0.0-0.6); Eosinophils % 4.3 %; Immature Granulocytes % 0.4 % (0-4); Lymphocytes # 1.5 K/mcL (0.6-4.6); Lymphocytes % 22.5 %; Mean Corpuscular HGB Conc 34.2 g/dL (31.6-35.5); Mean Corpuscular Hemoglobin 31.1 pg (28.0-33.3); Mean Corpuscular Volume 90.9 fL (83.0-100.0); Mean Platelet Volume 10.5 fL (9.4-12.4); Monocytes # 0.4 K/mcL (0.0-1.3); Monocytes % 5.2 %; Neutrophils # 4.5 K/mcL (1.6-8.9); Platelet Count 222 K/mcL (140-400); Red Blood Count 4.18 M/mcL (3.82-4.97); Red Cell Distribution Width 12.7 % (11.5-14.5)
[2018-01-17 02:34] LABS: BUN/Creatinine Ratio 12 (6-26); Blood Urea Nitrogen 7 mg/dL (6-20); Calcium 8.8 mg/dL (8.6-10.3); Carbon Dioxide 30 mEq/L (23-29); Chloride 105 mEq/L (98-107); Glucose 92 mg/dL (70-105); Osmolality,Calculated 288 (280-300); Potassium 4.1 mEq/L (3.5-5.1); Sodium 140 mEq/L (136-145); eGFR For African Americans > 60 (> 60); eGFR For Non-African Americans > 60 (> 60)
[2018-01-17] MEDS: Acetaminophen 325 MG TABLET PO PRN ×3 (02:42→21:20)
[2018-01-17] MEDS: *HR* HYDROcodone/Acet 5/325 mg TABLET PO PRN ×4 (05:12→23:23)
[2018-01-17] MEDS: *HR* Heparin 5,000 UNIT/ML VIAL SQ SCH ×2 (05:13→19:32)
[2018-01-17] MEDS: Nicotine 21 MG PATCH.TD24 TD SCH (08:13)
[2018-01-17] MEDS: Ibuprofen 600 MG TABLET PO PRN ×2 (09:14→19:39)
--- NOTE | 2018-01-17 18:54 | Internal Med Progress Note ---
Date of Encounter: 01/17/18 Time of Encounter: 09:00 - Assessment and plan (1) Cellulitis of buccal space of mouth Current Visit: Yes Status: Acute Assessment and plan: Facial CT completed shows left pupil cellulitis no CT evidence of odontogenic abscess with technical limitation patient failed outpatient oral antibiotic treatment We will continue with vancomycin and Cipro and Flagyl-blood cultures with no growth Symptomatic treatment pain nausea and fever Monitor patient's airway (2) DVT prophylaxis Current Visit: No Status: Acute Assessment and plan: Heparin subcutaneously - Time Spent With Patient Total time spent is greater than 50% in coordination of care (as documented) at patient's floor/unit and/or counseling patient: - Subjective Interval history: The patient cont to have left facial swelling and pain, airway patent trachea midline no drooling difficulty breathing or swallowing - Constitutional Vitals: Temp Pulse Resp BP Pulse Ox 98.8 F 56 14 129/79 100 01/17/18 14:16 01/17/18 14:16 01/17/18 14:16 01/17/18 14:16 01/17/18 14:16 General appearance: Present: mild distress, A&O X 3, morbidly obese, answers questions appropriately - Head Additional comments: L side of face swollen - Eye Eye exam: Present: periorbital swelling, PERRL, conjuntiva pink, sclera anicteric Pupils: Present: PERRL - Neck Neck exam general surgery: Present: supple, trachea midline. Absent: lymphadenopathy - Respiratory Respiratory exam: Present: CTAB. Absent: accessory muscle use, rales, rhonchi, wheezes - Cardiovascular Cardiovascular exam: Present: RRR, +S1, +S2. Absent: diastolic murmur, gallop, rubs, systolic murmur - GI/Abdominal GI/Abdominal exam: Present: normal bowel sounds, soft, no peritoneal signs. Absent: distended, tenderness - Extremities Exam Extremities exam: Present: warm, radial pulses palpable and symmetrical. Absent : calf tenderness, cyanotic, pedal edema - Neurological Exam Neurological exam: Present: CN II-XII intact, oriented X3, no focal deficits. Absent: pronater drift, facial droop, speech deficit - Skin Skin exam: Present: dry, intact Internal Medicine: Result - Labs CBC & Chem 7: 01/17/18 01:55 01/17/18 01:55 Labs: Short CBC 01/17/18 Range/Units 01:55 WBC 6.8 (4.3-11.1) K/mcL Hgb 13.0 (11.5-15.4) g/dL Hct 38.0 (35.3-44.9) % Plt Count 222 (140-400) K/mcL Neutrophils # 4.5 (1.6-8.9) K/mcL BMP 01/17/18 01:55 Sodium 140 Potassium 4.1 Chloride 105 Carbon Dioxide 30 H BUN 7 Creatinine 0.59 L Glucose 92 Calcium 8.8 Consult Discharge Plan - Plan Referrals: NONE,PCP [Primary Care Provider] -
[2018-01-18] MEDS: MetroNIDAZOLE 500 MG/100 ML 500 MG/100 ML BAG IVPB SCH ×4 (02:13→23:17)
[2018-01-18] MEDS: *HR* Heparin 5,000 UNIT/ML VIAL SQ SCH ×2 (05:46→17:54)
[2018-01-18] MEDS: Ondansetron 4 MG/2 ML VIAL IVP PRN ×3 (05:51→23:17)
[2018-01-18] MEDS: *HR* HYDROcodone/Acet 5/325 mg TABLET PO PRN ×3 (05:51→18:56)
[2018-01-18] MEDS: Ibuprofen 600 MG TABLET PO PRN ×2 (11:18→21:33)
--- NOTE | 2018-01-18 12:43 | Internal Med Progress Note ---
Date of Encounter: 01/18/18 Time of Encounter: 12:45 - Assessment and plan (1) Cellulitis of buccal space of mouth Current Visit: Yes Status: Acute Assessment and plan: Facial CT completed shows left pupil cellulitis no CT evidence of odontogenic abscess with technical limitation patient failed outpatient oral antibiotic treatment We will continue with vancomycin and Cipro and Flagyl-blood cultures with no growth Symptomatic treatment pain nausea and fever Monitor patient's airway (2) DVT prophylaxis Current Visit: No Status: Acute Assessment and plan: Heparin subcutaneously - Time Spent With Patient Total time spent is greater than 50% in coordination of care (as documented) at patient's floor/unit and/or counseling patient: - Subjective Interval history: I examined patient at bedside Her swelling has improved in her face Nursing has reports that she is leaving the floor to smoke and go to vending machine. Patient is requesting stronger pain medications advised that motrin will help with swelling - Constitutional Vitals: Temp Pulse Resp BP Pulse Ox 99.1 F 61 17 148/86 95 01/18/18 10:59 01/18/18 10:59 01/18/18 10:59 01/18/18 10:59 01/18/18 10:59 General appearance: Present: mild distress, A&O X 3, morbidly obese, answers questions appropriately - Head Head exam: Present: normocephalic Additional comments: swelling to L side of face - Eye Eye exam: Present: PERRL, conjuntiva pink, sclera anicteric Pupils: Present: PERRL - Neck Neck exam general surgery: Present: supple, trachea midline. Absent: lymphadenopathy - Respiratory Respiratory exam: Present: CTAB. Absent: accessory muscle use, rales, rhonchi, wheezes - Cardiovascular Cardiovascular exam: Present: RRR, +S1, +S2. Absent: diastolic murmur, gallop, rubs, systolic murmur - GI/Abdominal GI/Abdominal exam: Present: normal bowel sounds, soft, no peritoneal signs. Absent: distended, tenderness - Extremities Exam Extremities exam: Present: warm, radial pulses palpable and symmetrical. Absent : calf tenderness, cyanotic, pedal edema - Neurological Exam Neurological exam: Present: CN II-XII intact, oriented X3, no focal deficits. Absent: pronater drift, facial droop, speech deficit - Skin Skin exam: Present: dry, intact Internal Medicine: Result - Labs CBC & Chem 7: 01/17/18 01:55 01/17/18 01:55 Consult Discharge Plan - Plan Referrals: NONE,PCP [Primary Care Provider] -
[2018-01-18] MEDS: Nicotine 21 MG PATCH.TD24 TD SCH (13:00)
[2018-01-18 13:27] LABS: Basophils % 0.5 %; Eosinophils # 0.2 K/mcL (0.0-0.6); Eosinophils % 3.2 %; Hematocrit 40.8 % (35.3-44.9); Hemoglobin 14.4 g/dL (11.5-15.4); Immature Granulocytes % 0.5 % (0-4); Lymphocytes # 1.2 K/mcL (0.6-4.6); Mean Corpuscular HGB Conc 35.3 g/dL (31.6-35.5); Mean Corpuscular Hemoglobin 31.2 pg (28.0-33.3); Mean Corpuscular Volume 88.3 fL (83.0-100.0); Mean Platelet Volume 10.2 fL (9.4-12.4); Monocytes # 0.2 K/mcL (0.0-1.3); Monocytes % 2.7 %; Neutrophils # 5.5 K/mcL (1.6-8.9); Platelet Count 250 K/mcL (140-400); Red Blood Count 4.62 M/mcL (3.82-4.97); Red Cell Distribution Width 12.6 % (11.5-14.5); Segmented Neutrophils % 76.1 %
[2018-01-18 13:45] LABS: BUN/Creatinine Ratio 10 (6-26); Blood Urea Nitrogen 7 mg/dL (6-20); Calcium 9.1 mg/dL (8.6-10.3); Carbon Dioxide 27 mEq/L (23-29); Chloride 103 mEq/L (98-107); Glucose 140 mg/dL (70-105); Osmolality,Calculated 282 (280-300); Potassium 3.7 mEq/L (3.5-5.1); Sodium 136 mEq/L (136-145); eGFR For African Americans > 60 (> 60); eGFR For Non-African Americans > 60 (> 60)
[2018-01-18] MEDS: Acetaminophen 325 MG TABLET PO PRN (15:42)
[2018-01-18] MEDS ORDERED: Aminoglycoside Consult 1 EACH MC ONE (16:21)
[2018-01-18] MEDS: hydrOXYzine pamoate 25 MG CAPSULE PO PRN (21:34)
[2018-01-19] MEDS: *HR* HYDROcodone/Acet 5/325 mg TABLET PO PRN ×2 (00:49→07:49)
[2018-01-19] MEDS: Acetaminophen 325 MG TABLET PO PRN ×2 (02:14→12:09)
[2018-01-19] MEDS: Ondansetron 4 MG/2 ML VIAL IVP PRN ×2 (04:40→12:09)
[2018-01-19] MEDS: Ibuprofen 600 MG TABLET PO PRN (05:49)
[2018-01-19] MEDS: *HR* Heparin 5,000 UNIT/ML VIAL SQ SCH (06:03)
[2018-01-19] MEDS: Nicotine 21 MG PATCH.TD24 TD SCH (07:49)
[2018-01-19] MEDS: MetroNIDAZOLE 500 MG/100 ML 500 MG/100 ML BAG IVPB SCH ×2 (07:50→14:55)
[2018-01-19 08:58] LABS: Basophils # 0.1 K/mcL (0.0-0.2); Basophils % 0.7 %; Eosinophils # 0.3 K/mcL (0.0-0.6); Eosinophils % 3.9 %; Hematocrit 41.9 % (35.3-44.9); Hemoglobin 14.3 g/dL (11.5-15.4); Immature Granulocytes % 0.3 % (0-4); Lymphocytes # 1.8 K/mcL (0.6-4.6); Lymphocytes % 24.2 %; Mean Corpuscular HGB Conc 34.1 g/dL (31.6-35.5); Mean Corpuscular Hemoglobin 30.7 pg (28.0-33.3); Mean Corpuscular Volume 89.9 fL (83.0-100.0); Mean Platelet Volume 10.5 fL (9.4-12.4); Monocytes # 0.4 K/mcL (0.0-1.3); Monocytes % 5.2 %; Neutrophils # 4.8 K/mcL (1.6-8.9); Platelet Count 252 K/mcL (140-400); Red Blood Count 4.66 M/mcL (3.82-4.97); Segmented Neutrophils % 65.7 %
[2018-01-19 09:30] LABS: BUN/Creatinine Ratio 13 (6-26); Blood Urea Nitrogen 9 mg/dL (6-20); Calcium 8.9 mg/dL (8.6-10.3); Carbon Dioxide 29 mEq/L (23-29); Chloride 101 mEq/L (98-107); Glucose 93 mg/dL (70-105); Osmolality,Calculated 280 (280-300); Potassium 3.5 mEq/L (3.5-5.1); Sodium 136 mEq/L (136-145); eGFR For African Americans > 60 (> 60); eGFR For Non-African Americans > 60 (> 60)
[2018-01-19] MEDS ORDERED: Ibuprofen 800 MG TABLET PO PRN (09:46)
--- NOTE | 2018-01-19 15:00 | Internal Med Progress Note ---
Date of Encounter: 01/19/18 Time of Encounter: 11:00 - Assessment and plan (1) Cellulitis of buccal space of mouth Current Visit: Yes Status: Acute Assessment and plan: Facial CT completed shows left buccal cellulitis no CT evidence of odontogenic abscess with technical limitation patient failed outpatient oral antibiotic treatment Blood cultures showed no growth. De-escalate antibiotics vancomycin has been stopped continue with Thanh and Aly concerned about compliance since the patient is homeless. Would like to continue IV antibiotics and discharged on Sunday with oral. career services director has been consulted, she may be able to stay with her grandparents upon discharge Symptomatic treatment pain nausea and fever Monitor patient's airway (2) DVT prophylaxis Current Visit: No Status: Acute Assessment and plan: Heparin subcutaneously - Time Spent With Patient Total time spent is greater than 50% in coordination of care (as documented) at patient's floor/unit and/or counseling patient: - Subjective Interval history: I examined the patient at bedside. Patient's swelling has greatly improved her eye is completely open at this time. I did de-escalate the antibiotics yesterday would like to continue with IV antibiotics today and reassess in the a.m. Before placing on oral antibiotics. Patient is homeless and I am concerned about antibiotic compliance upon discharge in follow-up. We did discuss the importance of oral hygiene and the need for patient to see a dentist. body and fender worker is assisting. Patient continues to request narcotics again advised ibuprofen beneficial at this time I did increase the strength of ibuprofen. Also advised against smoking which patient verbalized understanding. I did review treatment plan with the patient concerning receiving antibiotics IV and discharging Sunday again patient verbalized understanding - Constitutional Vitals: Temp Pulse Resp BP Pulse Ox 98.2 F 61 16 161/76 94 01/19/18 12:04 01/19/18 12:04 01/19/18 12:04 01/19/18 12:04 01/19/18 12:04 General appearance: Present: mild distress, A&O X 3, morbidly obese, answers questions appropriately - Head Head exam: Present: atraumatic, normocephalic - Eye Eye exam: Present: PERRL, conjuntiva pink, sclera anicteric Pupils: Present: PERRL - Neck Neck exam general surgery: Present: supple, trachea midline. Absent: lymphadenopathy - Respiratory Respiratory exam: Present: CTAB. Absent: accessory muscle use, rales, rhonchi, wheezes - Cardiovascular Cardiovascular exam: Present: RRR, +S1, +S2. Absent: diastolic murmur, gallop, rubs, systolic murmur - GI/Abdominal GI/Abdominal exam: Present: normal bowel sounds, soft, no peritoneal signs. Absent: distended, tenderness - Extremities Exam Extremities exam: Present: warm, radial pulses palpable and symmetrical. Absent : calf tenderness, cyanotic, pedal edema - Neurological Exam Neurological exam: Present: CN II-XII intact, oriented X3, no focal deficits. Absent: pronater drift, facial droop, speech deficit - Skin Skin exam: Present: dry, intact Internal Medicine: Result - Labs CBC & Chem 7: 01/19/18 08:33 01/19/18 08:33 Labs: Short CBC 01/19/18 Range/Units 08:33 WBC 7.3 (4.3-11.1) K/mcL Hgb 14.3 (11.5-15.4) g/dL Hct 41.9 (35.3-44.9) % Plt Count 252 (140-400) K/mcL Neutrophils # 4.8 (1.6-8.9) K/mcL BMP 01/19/18 08:33 Sodium 136 Potassium 3.5 Chloride 101 Carbon Dioxide 29 BUN 9 Creatinine 0.72 Glucose 93 Calcium 8.9 Consult Discharge Plan - Plan Referrals: NONE,PCP [Primary Care Provider] -
[2018-01-19 15:21] VITALS: BP 120/80
--- NOTE | 2018-01-19 18:09 | Discharge Summary ---
Date of Encounter: 01/19/18 Time of Encounter: 17:57 - Discharge Diagnosis (1) Cellulitis of buccal space of mouth Priority: Primary Status: Acute Hospital course: Ms. Stafford is a 32 year old female past medical history of bipolar disorder depression and anxiety current smoker PTSD. Patient presented to the emergency department after experiencing left sided facial swelling and pain for approximate 3 days she did originally not complain of a toothache however over time she began to experience headache severe pain of the left jaw, nausea and vomiting. Blood cultures were drawn initiated on vancomycin Cipro and Flagyl. Patient's airway patent, no drooling difficulty breathing trachea is midline. CT of face did show left pubic cellulitis no CT evidence of odontogenic abscess pa once to leave AGAINST MEDICAL ADVICE tient did take Levaquin at home without any improvement. She did receive antibiotic treatment over the past 4 days. Blood cultures with negative growth. Antibiotics de-escalate yesterday to Cipro and Flagyl. Patient's swelling has improved utilizing ibuprofen for analgesia and swelling. Patient is homeless foster care social worker has been working with the patient concerning and for discharge. Discussed with patient she will have to follow up with primary care physician as well as dentist which patient does not have a primary care doctor. surgical services tech correlating discharge planning-apparently patient may be able to go to her grandparents after discharge. Discussed with patient today she will continue to receive IV antibiotics until Sunday. Concern that patient will not be compliant -notified per nursing staff the patient wants to leave she wants to go smoke -patient pulled out IV. I did get Dr. Pelayo he and I approached the patient together advised patient to stay in the hospital to continue IV antibiotics. Concerned about relapse of infection due to noncompliance. Patient expresses that she does not want us today she is anxious she is PTSD and she feels as if she is at group home cell. Patient would like to smoke. I did speak with house wrecker who stated she could go smoke as long as she is accompanied by staff. Asked patient she would stay again she declined and would like to leave AGAINST MEDICAL ADVICE. Both and I explained that she was risking possible due to airway obstruction from swelling, and that infection could be worse if not completed antibiotics. Patient verbalized understanding and wants to leave AGAINST MEDICAL ADVICE Discharge discussed with: patient - Time Spent with Patient Total time spent providing and/or coordinating discharge services: - Discharge Medications Prescriptions: Ciprofloxacin [Cipro] 500 mg PO BID #20 tablet metroNIDAZOLE [Flagyl] 500 mg PO TID #30 tablet Naproxen [Naprosyn] 500 mg PO BID #8 tablet Home Medications: Tizanidine HCl 4 mg PO Q8H PRN 08/25/16 [History] DULoxetine [Cymbalta] 60 mg PO BID #14 capsule. 07/05/17 [Rx] hydrOXYzine pamoate [HydrOXYzine Pamoate] 25 mg PO TID PRN #21 capsule 07/05/17 [Rx] Buspirone HCl [Buspar] 10 mg PO BID #60 tablet 07/25/17 [Rx] Quetiapine Fumarate [Seroquel] 50 mg PO HS 01/15/18 [History] Ciprofloxacin [Cipro] 500 mg PO BID #20 tablet 01/19/18 [Rx] Naproxen [Naprosyn] 500 mg PO BID #8 tablet 01/19/18 [Rx] metroNIDAZOLE [Flagyl] 500 mg PO TID #30 tablet 01/19/18 [Rx] Allergies/Adverse Reactions: 3 Allergy/AdvReac Type Severity Reaction Status Date / Time ceftriaxone [From Rocephin] Allergy Anaphylaxis Verified 01/15/18 18:03 clindamycin Allergy Anaphylaxis Verified 01/15/18 18:03 diphenhydramine Allergy Hives Verified 01/15/18 18:03 [From Benadryl] divalproex sodium Allergy Hives Verified 01/15/18 18:03 [From Depakote] Doxepin Allergy Hives Verified 01/15/18 18:03 famotidine [From Pepcid] Allergy Hives Verified 01/15/18 18:03 morphine Allergy Hives Verified 01/15/18 18:03 naproxen Allergy Rash Verified 01/15/18 18:03 Penicillins Allergy Anaphylaxis Verified 01/15/18 18:03 tramadol Allergy Hives Verified 01/15/18 18:03 Tramazoline Allergy Hives Verified 01/15/18 18:03 ziprasidone [From Geodon] Allergy Hives Verified 01/15/18 18:03 sertraline [From Zoloft] AdvReac Depression Verified 01/15/18 18:03 Date of admission: 01/15/18 20:34 Primary care physician: PCP NONE Consults: 01/15/18 23:39 Consult to Commercial Center Manager [CONS] Routine Reason for SW Consult: pt is homeless. Possible resources Discharging clinician: Evelyn Su - Constitutional Vitals: Temp Pulse Resp BP Pulse Ox 98.9 F 76 16 120/80 96 01/19/18 15:19 01/19/18 15:19 01/19/18 15:19 01/19/18 15:19 01/19/18 15:19 General appearance: Present: mild distress, A&O X 3, morbidly obese, answers questions appropriately - Head Head exam: Present: atraumatic, normocephalic - Eye Eye exam: Present: PERRL, conjuntiva pink, sclera anicteric Pupils: Present: PERRL - Neck Neck exam general surgery: Present: supple, trachea midline. Absent: lymphadenopathy - Respiratory Respiratory exam: Present: CTAB. Absent: accessory muscle use, rales, rhonchi, wheezes - Cardiovascular Cardiovascular exam: Present: RRR, +S1, +S2. Absent: diastolic murmur, gallop, rubs, systolic murmur - GI/Abdominal GI/Abdominal exam: Present: normal bowel sounds, soft, no peritoneal signs. Absent: distended, tenderness - Extremities Exam Extremities exam: Present: warm, radial pulses palpable and symmetrical. Absent : calf tenderness, cyanotic, pedal edema - Neurological Exam Neurological exam: Present: CN II-XII intact, oriented X3, no focal deficits. Absent: pronater drift, facial droop, speech deficit - Skin Skin exam: Present: dry, intact - Patient Status Disposition: Left Against Medical Advice Condition: Good - Discharge Instructions Instructions: Ciprofloxacin (By mouth), Metronidazole (By mouth) Follow Up With: NONE,PCP [Primary Care Provider] -
== END 2018-01-19 16:22 | disposition left against medical advice (07) | DRG 115 ==
LOC: 3BNU 14:30 → EMEROO 14:30 → 3BNU 20:16
PROVIDERS: ADMIT Pediatrics; ATTEND Pediatrics

== ENCOUNTER 2018-05-02 11:32 | Observation (INO) ==
[2018-05-02] MEDS ORDERED: Ondansetron 4 MG/2 ML VIAL IVP ONE (11:49)
[2018-05-02] MEDS ORDERED: 0.9 % Sodium Chloride 1,000 ML IVC ONE (11:49)
[2018-05-02] MEDS ORDERED: Isovue-370 500 ML INFUS..BTL IV ONE (11:50)
[2018-05-02] MEDS ORDERED: Clindamycin 900 MG/50 ML 900 MG/50 ML IV.SOLN IVPB ONE (11:50)
[2018-05-02 12:25] LABS: Basophils # 0.1 K/mcL (0.0-0.2); Basophils % 0.7 %; Eosinophils # 0.3 K/mcL (0.0-0.6); Eosinophils % 4.5 %; Hemoglobin 13.8 g/dL (11.5-15.4); Immature Granulocytes % 0.7 % (0-4); Lymphocytes # 1.6 K/mcL (0.6-4.6); Lymphocytes % 21.7 %; Mean Corpuscular HGB Conc 34.5 g/dL (31.6-35.5); Mean Corpuscular Hemoglobin 30.5 pg (28.0-33.3); Mean Corpuscular Volume 88.3 fL (83.0-100.0); Mean Platelet Volume 10.4 fL (9.4-12.4); Monocytes # 0.3 K/mcL (0.0-1.3); Neutrophils # 5.2 K/mcL (1.6-8.9); Platelet Count 249 K/mcL (140-400); Red Blood Count 4.53 M/mcL (3.82-4.97); Red Cell Distribution Width 12.5 % (11.5-14.5); Segmented Neutrophils % 68.4 %
--- NOTE | 2018-05-02 12:40 | Emergency Department Note ---
Disposition Clinical Impression: Dental infection Intractable nausea and vomiting Qualifiers: Vomiting type: unspecified Qualified Code(s): R11.2 - Nausea with vomiting, unspecified Disposition: Admitted As Inpatient Condition: Good Forms: ED Satisfaction Letter, Work/School Release General Adult HPI - General Chief complaint: ED General Medical Stated complaint: Multiple complaints Time Seen by Provider: 05/02/18 11:43 Source: patient Limitations: no limitations Nursing Notes Reviewed: Yes Vital Signs Reviewed: Yes - History of Present Illness HPI Narrative: Patient presents today for evaluation of infection in her mouth as well as unable to tolerate her antibiotics at home. She had recent trauma to her face where she states that her kicked her teeth in. She states that since then she has been having pain and concern for infection. She was seen by family doc and states that a tooth abscess was drained and she was placed on antibiotics. She was placed on clindamycin and Flagyl. The patient states that yesterday she was getting sick to her stomach and today she is been unable to tolerate the antibiotics secondary to nausea and vomiting after eating. Patient does not have any abdominal pain at this time. Vomiting is nonbloody in nature. Patient attains of worsening pain to the left jaw. She just has pain to the upper molars with palpation as well as the lower soft tissue of the neck on the left. Pain Scale: 9 - Related Data Home Medications Medication Instructions Recorded Confirmed Tizanidine HCl 4 mg PO Q8H PRN 08/25/16 01/15/18 Quetiapine Fumarate [Seroquel] 50 mg PO HS 01/15/18 01/15/18 Previous Rx's Medication Instructions Recorded DULoxetine [Cymbalta] 60 mg PO BID #14 capsule. 07/05/17 hydrOXYzine pamoate [HydrOXYzine 25 mg PO TID PRN #21 capsule 07/05/17 Pamoate] Buspirone HCl [Buspar] 10 mg PO BID #60 tablet 07/25/17 Ciprofloxacin [Cipro] 500 mg PO BID #20 tablet 01/19/18 Naproxen [Naprosyn] 500 mg PO BID #8 tablet 01/19/18 metroNIDAZOLE [Flagyl] 500 mg PO TID #30 tablet 01/19/18 Allergies Allergy/AdvReac Type Severity Reaction Status Date / Time ceftriaxone [From Rocephin] Allergy Anaphylaxis Verified 05/02/18 11:48 clindamycin Allergy Anaphylaxis Verified 05/02/18 11:48 diphenhydramine Allergy Hives Verified 05/02/18 11:48 [From Benadryl] divalproex sodium Allergy Hives Verified 05/02/18 11:48 [From Depakote] Doxepin Allergy Hives Verified 05/02/18 11:48 famotidine [From Pepcid] Allergy Hives Verified 05/02/18 11:48 morphine Allergy Hives Verified 05/02/18 11:48 naproxen Allergy Rash Verified 05/02/18 11:48 Penicillins Allergy Anaphylaxis Verified 05/02/18 11:48 tramadol Allergy Hives Verified 05/02/18 11:48 Tramazoline Allergy Hives Verified 05/02/18 11:48 ziprasidone [From Geodon] Allergy Hives Verified 05/02/18 11:48 sertraline [From Zoloft] AdvReac Depression Verified 05/02/18 11:48 Review of Systems: CONSTITUTIONAL: Fevers, chills, weakness and fatigue HEENT: Eyes: No visual changes. Ears, Nose, Throat: Pain to the teeth as well as his jaw and pain with swallowing. SKIN: No rash or itching. CARDIOVASCULAR: No chest pain, chest pressure or chest discomfort. No palpitations or edema. RESPIRATORY: No shortness of breath, cough or sputum. GASTROINTESTINAL: No anorexia, nausea, vomiting or diarrhea. No abdominal pain or blood. GENITOURINARY: No burning on urination or hematuria. NEUROLOGICAL: Headache that she is described as foot frontal and worse with standing No dizziness, syncope, paralysis, ataxia, numbness or tingling in the extremities. No change in bowel or bladder control. MUSCULOSKELETAL: No muscle pain, back pain, joint pain or stiffness. Past Medical History - Past Medical History Medical history: Reports: kidney stones Surgical history: Reports: appendectomy, cholecystectomy, hysterectomy, ureteral stent Psychiatric history: Reports: depression, PTSD REPAIR MECHANIC history: Reports: polycystic ovary syndrome - Social History Smoking Status: Current every day smoker Smokeless Tobacco Status: No Alcohol use: Reports: none Drug use: Reports: none Physical Exam General: Patient appears weak and in mild distress secondary to jaw pain Head: Normocephalic Atraumatic Eyes: PERRL, EOMI ENT: Airway patent, no stridor; tenderness to palpation of the upper maxilla with specific tenderness at the single-tooth that is located there. Significantly poor dentition. Neck: supple, no meningismus Chest: Lungs clear to auscultation bilateral Cardiac: Regular rhythm, tachycardia Abdomen: soft, nontender, nondistended; no guarding, rebound, or tenderness to percussion Musculoskeletal: Calves symmetric, nontender Skin: No rash, normal skin tone Neuro: Alert and Oriented to person, place, and time; No focal deficit, CN 2-12 symmetric and intact - General Limitations: no limitations General appearance: alert, in no apparent distress Course - Consultations Consultation #1: Discussed with hospitalist. Patient accepted for admission. Vital Signs Temperature 97.4 F L 05/02/18 11:35 Pulse Rate 82 05/02/18 11:35 Respiratory Rate 16 05/02/18 11:35 Blood Pressure 162/106 05/02/18 11:35 O2 Sat by Pulse Oximetry 98 05/02/18 11:35 Temperature 97.4 F L 05/02/18 11:44 Pulse Rate 72 05/02/18 16:23 Respiratory Rate 20 05/02/18 16:23 Blood Pressure 135/68 05/02/18 16:23 O2 Sat by Pulse Oximetry 94 05/02/18 16:23 Oxygen Delivery Oxygen Delivery Room Air Medical Decision Making - Lab Data Result diagrams: 05/02/18 12:11 05/02/18 12:11 Lab Results 05/02/18 05/02/18 05/02/18 Range/Units 12:11 12:11 12:11 WBC 7.6 (4.3-11.1) K/mcL RBC 4.53 (3.82-4.97) M/mcL Hgb 13.8 (11.5-15.4) g/dL Hct 40.0 (35.3-44.9) % MCV 88.3 (83.0-100.0) fL MCH 30.5 (28.0-33.3) pg MCHC 34.5 (31.6-35.5) g/dL RDW 12.5 (11.5-14.5) % Plt Count 249 (140-400) K/mcL MPV 10.4 (9.4-12.4) fL Immature Gran % 0.7 (0-4) % Seg Neutrophils % 68.4 % Lymphocytes % 21.7 % Monocytes % 4.0 % Eosinophils % 4.5 % Basophils % 0.7 % Neutrophils # 5.2 (1.6-8.9) K/mcL Lymphocytes # 1.6 (0.6-4.6) K/mcL Monocytes # 0.3 (0.0-1.3) K/mcL Eosinophils # 0.3 (0.0-0.6) K/mcL Basophils # 0.1 (0.0-0.2) K/mcL Sodium 139 (136-145) mEq/L Potassium 3.3 L (3.5-5.1) mEq/L Chloride 104 (98-107) mEq/L Carbon Dioxide 27 (23-29) mEq/L BUN 5 L (6-20) mg/dL Creatinine 0.57 L (0.60-1.20) mg/dL Est GFR ( Amer) > 60 (> 60) Est GFR (Non-Af Amer) > 60 (> 60) BUN/Creatinine Ratio 9 (6-26) Glucose 108 H (70-105) mg/dL Calculated Osmolality 286 (280-300) Lactic Acid 1.7 (0.5-2.2) mmol/L Calcium 8.9 (8.6-10.3) mg/dL Total Bilirubin (0.3-1.0) mg/dL Direct Bilirubin (0.0-0.2) mg/dL Indirect Bilirubin (0.0-1.2) mg/dL AST (13-39) Units/L ALT (7-52) Units/L Alkaline Phosphatase (34-104) Units/L Serum Total Protein (6.4-8.9) g/dL Albumin (3.5-5.7) g/dL Globulin (2.4-3.5) g/dL Albumin/Globulin Ratio (1.1-2.2) Lipase (11-82) Units/L Urine Color (Yellow) Urine Clarity (Clear) Urine pH (5.0-8.0) pH Units Ur Specific Skippers (1.010-1.025) Urine Protein (Neg-Trace) mg/dL Urine Glucose (UA) (Normal) mg/dL Urine Ketones (Negative) mg/dL Urine Blood (Negative) Urine Nitrite (Negative) Urine Bilirubin (Negative) Urine Urobilinogen (Normal) mg/dL Ur Leukocyte Esterase (Negative) Urine Microscopic RBC (0-3) per hpf Urine Microscopic WBC (0-3) per hpf Ur Squamous Epith Cells (None-Few) per lpf Urine Bacteria (None-Few) per hpf Hyaline Casts (None-Few) per lpf Ur Culture Indicated? (NO) 05/02/18 05/02/18 Range/Units 15:09 15:22 WBC (4.3-11.1) K/mcL RBC (3.82-4.97) M/mcL Hgb (11.5-15.4) g/dL Hct (35.3-44.9) % MCV (83.0-100.0) fL MCH (28.0-33.3) pg MCHC (31.6-35.5) g/dL RDW (11.5-14.5) % Plt Count (140-400) K/mcL MPV (9.4-12.4) fL Immature Gran % (0-4) % Seg Neutrophils % % Lymphocytes % % Monocytes % % Eosinophils % % Basophils % % Neutrophils # (1.6-8.9) K/mcL Lymphocytes # (0.6-4.6) K/mcL Monocytes # (0.0-1.3) K/mcL Eosinophils # (0.0-0.6) K/mcL Basophils # (0.0-0.2) K/mcL Sodium (136-145) mEq/L Potassium (3.5-5.1) mEq/L Chloride (98-107) mEq/L Carbon Dioxide (23-29) mEq/L BUN (6-20) mg/dL Creatinine (0.60-1.20) mg/dL Est GFR ( Amer) (> 60) Est GFR (Non-Af Amer) (> 60) BUN/Creatinine Ratio (6-26) Glucose (70-105) mg/dL Calculated Osmolality (280-300) Lactic Acid (0.5-2.2) mmol/L Calcium (8.6-10.3) mg/dL Total Bilirubin 0.2 L (0.3-1.0) mg/dL Direct Bilirubin 0.1 (0.0-0.2) mg/dL Indirect Bilirubin 0.1 (0.0-1.2) mg/dL AST 19 (13-39) Units/L ALT 34 (7-52) Units/L Alkaline Phosphatase 66 (34-104) Units/L Serum Total Protein 6.3 L (6.4-8.9) g/dL Albumin 3.7 (3.5-5.7) g/dL Globulin 2.6 (2.4-3.5) g/dL Albumin/Globulin Ratio 1.4 (1.1-2.2) Lipase 75 (11-82) Units/L Urine Color Yellow (Yellow) Urine Clarity Clear (Clear) Urine pH 6.5 (5.0-8.0) pH Units Ur Specific Skippers 1.026 H (1.010-1.025) Urine Protein Negative (Neg-Trace) mg/dL Urine Glucose (UA) Normal (Normal) mg/dL Urine Ketones Negative (Negative) mg/dL Urine Blood Large H (Negative) Urine Nitrite Negative (Negative) Urine Bilirubin Negative (Negative) Urine Urobilinogen Normal (Normal) mg/dL Ur Leukocyte Esterase Negative (Negative) Urine Microscopic RBC TNTC H (0-3) per hpf Urine Microscopic WBC 0-3 (0-3) per hpf Ur Squamous Epith Cells Few (None-Few) per lpf Urine Bacteria None Seen (None-Few) per hpf Hyaline Casts None Seen (None-Few) per lpf Ur Culture Indicated? NO (NO)
[2018-05-02 12:57] LABS: BUN/Creatinine Ratio 9 (6-26); Blood Urea Nitrogen 5 mg/dL (6-20); Calcium 8.9 mg/dL (8.6-10.3); Carbon Dioxide 27 mEq/L (23-29); Chloride 104 mEq/L (98-107); Glucose 108 mg/dL (70-105); Osmolality,Calculated 286 (280-300); Potassium 3.3 mEq/L (3.5-5.1); Sodium 139 mEq/L (136-145); eGFR For Non-African Americans > 60 (> 60)
[2018-05-02] MEDS ORDERED: Metoclopramide 10 MG/2 ML VIAL IVP ONE (15:01)
[2018-05-02 15:20] LABS: Bilirubin,Urine Negative (Negative); Blood,Urine Large (Negative); Clarity,Urine Clear (Clear); Color,Urine Yellow (Yellow); Glucose,Urine (UA) Normal (Normal); Ketones,Urine Negative (Negative); Leukocyte Esterase,Urine Negative (Negative); Nitrite,Urine Negative (Negative); PH,Urine 6.5 pH Units (5.0-8.0); Protein,Urine Negative (Neg-Trace); Specific Gravity,Urine 1.026 (1.010-1.025); Urobilinogen,Urine Normal (Normal)
[2018-05-02 15:24] LABS: Bacteria,Urine None Seen per hpf (None-Few); Hyaline Casts,Urine None Seen per lpf (None-Few); RBC,Urine TNTC per hpf (0-3); Squamous Epithelial Cell,Urine Few per lpf (None-Few); WBC,Urine 0-3 per hpf (0-3)
[2018-05-02 15:51] LABS: Albumin 3.7 g/dL (3.5-5.7); Albumin/Globulin Ratio 1.4 (1.1-2.2); Bilirubin,Direct 0.1 mg/dL (0.0-0.2); Bilirubin,Indirect 0.1 mg/dL (0.0-1.2); Bilirubin,Total 0.2 mg/dL (0.3-1.0); Globulin 2.6 g/dL (2.4-3.5); Total Protein 6.3 g/dL (6.4-8.9)
[2018-05-02] MEDS ORDERED: *HR* Promethazine 25 MG/ML VIAL IM STA (16:11)
[2018-05-02] MEDS ORDERED: Naloxone 0.4 MG/ML INJ IVP PRN (17:28)
[2018-05-02] MEDS ORDERED: tiZANidine 4 MG TABLET PO PRN (17:32)
--- NOTE | 2018-05-02 17:49 | Internal Med History&Physical ---
<Evelyne Richard - Last Filed: 05/02/18 17:41> Date of Encounter: 05/02/18 Time of Encounter: 17:41 Internal Medicine - H&P: HPI Chief complaint: Tooth abscess Admitted From: Home Plans for Post Hospital Care: Home History of present illness: Ms. Stafford is a 32 year old female with history of kidney stones. The patient was found to have an abscess and was started on flagyl and doxycycline at home with severe nausea and vomiting. The patient was started on clindamycin IV and will continue q8h. Neck and face CT was negative. The patient indicated that she has a dental appt on Sunday. Apparently the patient also was found to have blood in urine. The UA was negative for disease. Patient has also expressed that she has had CASTRO during this bout with her tooth. Past Med Surg Social Fam HX - Past Medical History Medical history: kidney stones Additional medical history: Chronic back pain Psychiatric history: depression, PTSD - Past Surgical History Surgical History: appendectomy, cholecystectomy, hysterectomy, ureteral stent Additional surgical history: ureteral stents - Social History Smoking Status: Current every day smoker Smokeless Tobacco Status: No Alcohol use: none Drug use: none - Family History Mother Living Status: Still Living Internal Medicine - H&P: Meds Tizanidine HCl 4 mg PO Q8H PRN 08/25/16 [History] Buspirone HCl [Buspar] 10 mg PO BID #60 tablet 07/25/17 [Rx] DULoxetine [Cymbalta] 60 mg PO DAILY 05/02/18 [History] Diclofenac Sodium [Voltaren] 50 mg PO Q8HR 05/02/18 [History] Lurasidone HCl [Latuda] 60 mg PO DAILY 05/02/18 [History] Oxycodone HCl/Acetaminophen [Percocet 5-325 mg Tablet] 1 tab PO Q6H PRN [History] Clindamycin [Cleocin] 300 mg PO Q8H #15 capsule 05/05/18 [Rx] Nicotine Patch [Nicoderm] 21 mg TD DAILY #30 patch.td24 05/05/18 [Rx] SUMAtriptan succinate [Imitrex] 100 mg PO Q2H PRN #10 tablet 05/05/18 [Rx] 3 Allergy/AdvReac Type Severity Reaction Status Date / Time ceftriaxone [From Rocephin] Allergy Anaphylaxis Verified 05/02/18 11:48 cephalexin Allergy Anaphylaxis Verified 05/02/18 19:11 diphenhydramine Allergy Hives Verified 05/02/18 11:48 [From Benadryl] divalproex sodium Allergy Hives Verified 05/02/18 11:48 [From Depakote] Doxepin Allergy Hives Verified 05/02/18 11:48 famotidine [From Pepcid] Allergy Hives Verified 05/02/18 11:48 morphine Allergy Hives Verified 05/02/18 11:48 naproxen Allergy Rash Verified 05/02/18 11:48 Penicillins Allergy Anaphylaxis Verified 05/02/18 11:48 tramadol Allergy Hives Verified 05/02/18 11:48 Tramazoline Allergy Hives Verified 05/02/18 11:48 ziprasidone [From Geodon] Allergy Hives Verified 05/02/18 11:48 sertraline [From Zoloft] AdvReac Depression Verified 05/02/18 11:48 All Systems PM: A 10-system review of systems was performed and is negative for pertinent findings except as documented above in the HPI. - Constitutional Constitutional: fever(s), no chills, no night sweats - EENT Eyes: no change in vision, no discharge, no pain, no photophobia Ears: no ear discharge, no ear pain, no tinnitus Nose, mouth and throat: facial pain, other (Tooth abcess), no dysphagia, no nasal discharge, no neck pain, no sore throat - Cardiovascular Cardiovascular ROS IM: no chest pain, no diaphoresis, no dyspnea, no lightheadedness, no palpitations, no syncope - Respiratory Respiratory: no cough, no dyspnea, no wheezing, no excessive phlegm production - Gastrointestinal Gastrointestinal: no abdominal pain, no diarrhea, no hematemesis, no hematochezia, no melena, no nausea, no vomiting - Genitourinary Genitourinary: no change in urinary stream, no dysuria, no flank pain, no hematuria - Musculoskeletal Musculoskeletal ROS IM: no numbness, no tingling - Integumentary Integumentary IM: no rash, no unusual bruising - Neurological Neurological ROS: no confusion, no convulsions, no focal weakness, no numbness, no tingling, no tremor(s) - Hematologic/Lymphatic Hematologic/Lymphatic: no easy bruising Internal Med - H&P Results - Labs CBC & Chem 7: 05/02/18 12:11 05/02/18 12:11 - Assessment and plan (1) Dental infection Status: Acute Assessment and plan: Outpatient treatment failure related to nausea and vomiting from oral antibiotics Continue IV clindamycin every 8 hours Monitor daily labs (2) Intractable nausea and vomiting Status: Acute Assessment and plan: Zofran iv when necessary Monitor daily labs Qualifiers: Vomiting type: unspecified Qualified Code(s): R11.2 - Nausea with vomiting , unspecified - Time Spent With Patient Total time spent is greater than 50% in coordination of care (as documented) at patient's floor/unit and/or counseling patient: less than 15 minutes - Constitutional Vitals: Temp Pulse Resp BP Pulse Ox 97.4 F L 72 20 135/68 94 05/02/18 11:44 05/02/18 16:23 05/02/18 16:23 05/02/18 16:23 05/02/18 16:23 General appearance: Present: A&O X 3, answers questions appropriately - Head Head exam: Present: atraumatic, normocephalic - Eye Eye exam: Present: PERRL, conjuntiva pink, sclera anicteric Pupils: Present: PERRL - Neck Neck exam general surgery: Present: supple, trachea midline. Absent: lymphadenopathy - Respiratory Respiratory exam: Present: CTAB. Absent: accessory muscle use, rales, rhonchi, wheezes - Cardiovascular Cardiovascular exam: Present: RRR, +S1, +S2. Absent: diastolic murmur, gallop, rubs, systolic murmur - GI/Abdominal GI/Abdominal exam: Present: normal bowel sounds, soft, no peritoneal signs. Absent: distended, tenderness - Extremities Exam Extremities exam: Present: warm, radial pulses palpable and symmetrical. Absent : calf tenderness, cyanotic, pedal edema - Neurological Exam Neurological exam: Present: CN II-XII intact, oriented X3, no focal deficits. Absent: pronater drift, facial droop, speech deficit - Skin Skin exam: Present: dry, intact <Nkadi,Chukwuemek - Last Filed: 05/17/18 14:09> Date of Encounter: 05/17/18 Internal Medicine - H&P: HPI History of present illness: Ms. Stafford is a 32 year old female All Systems PM: A 10-system review of systems was performed and is negative for pertinent findings except as documented above in the HPI. - Constitutional Vitals: Temp Pulse Resp BP Pulse Ox 98.1 F 48 16 106/67 95 05/05/18 07:50 05/05/18 07:50 05/05/18 07:50 05/05/18 07:50 05/05/18 07:50 Exam: done Internal Med - H&P Results - Labs CBC & Chem 7: 05/03/18 05:00 05/04/18 06:19 - Time Spent With Patient Total time spent is greater than 50% in coordination of care (as documented) at patient's floor/unit and/or counseling patient: - Attending Attestation I examined this patient and my medical decision-making was reviewed with the nurse practitioner I agree with the documented findings, disposition and treatment plan as described except to the extent set forth below. - Constitutional Vitals: Temp Pulse Resp BP Pulse Ox 98.1 F 48 16 106/67 95 05/05/18 07:50 05/05/18 07:50 05/05/18 07:50 05/05/18 07:50 05/05/18 07:50 Exam: done
[2018-05-02] MEDS: *HR* OxyCODONE/APAP 5/325 TABLET PO PRN (20:15)
[2018-05-03] MEDS: Clindamycin 600 MG/50 ML 600 MG/50 ML IV.SOLN IVPB SCH ×3 (00:03→16:04)
[2018-05-03] MEDS: *HR* OxyCODONE/APAP 5/325 TABLET PO PRN ×3 (04:39→20:14)
[2018-05-03] MEDS: Ondansetron 4 MG/2 ML VIAL IVP PRN ×2 (04:41→20:14)
[2018-05-03 05:17] LABS: Basophils # 0.1 K/mcL (0.0-0.2); Basophils % 0.8 %; Eosinophils # 0.3 K/mcL (0.0-0.6); Eosinophils % 5.5 %; Hematocrit 39.9 % (35.3-44.9); Hemoglobin 13.8 g/dL (11.5-15.4); Immature Granulocytes % 0.5 % (0-4); Lymphocytes # 2.2 K/mcL (0.6-4.6); Lymphocytes % 37.1 %; Mean Corpuscular HGB Conc 34.6 g/dL (31.6-35.5); Mean Corpuscular Hemoglobin 30.7 pg (28.0-33.3); Mean Corpuscular Volume 88.9 fL (83.0-100.0); Mean Platelet Volume 10.8 fL (9.4-12.4); Monocytes # 0.3 K/mcL (0.0-1.3); Monocytes % 5.4 %; Platelet Count 221 K/mcL (140-400); Red Blood Count 4.49 M/mcL (3.82-4.97); Red Cell Distribution Width 12.6 % (11.5-14.5); Segmented Neutrophils % 50.7 %
[2018-05-03 05:35] LABS: BUN/Creatinine Ratio 8 (6-26); Blood Urea Nitrogen 5 mg/dL (6-20); Calcium 8.6 mg/dL (8.6-10.3); Carbon Dioxide 28 mEq/L (23-29); Chloride 108 mEq/L (98-107); Glucose 120 mg/dL (70-105); Osmolality,Calculated 290 (280-300); Potassium 3.4 mEq/L (3.5-5.1); Sodium 141 mEq/L (136-145); eGFR For Non-African Americans > 60 (> 60)
[2018-05-03] MEDS ORDERED: Ketorolac 30 MG/ML VIAL IVP ONE (08:37)
[2018-05-03] MEDS ORDERED: Prochlorperazine 10 MG/2 ML VIAL IVP ONE (08:38)
[2018-05-03] MEDS ORDERED: *HR* Promethazine 25 MG/ML VIAL IVP ONE (08:38)
[2018-05-03] MEDS ORDERED: Lurasidone 20 MG TABLET PO SCH (09:00)
[2018-05-03] MEDS: Nicotine 21 MG PATCH.TD24 TD SCH (11:47)
--- NOTE | 2018-05-03 12:00 | Internal Med Progress Note ---
Hospitalist Progress Note - Encounter Date of Encounter: 05/03/18 Time of Encounter: 11:57 - Subjective Interval History: Patient complaint left side headache, stated her pain is located behind left eye , she also complained nausea and vomiting. She denies fever, chills, or night sweats. She has no shortness breath or chest pain. - Exam Vitals: Temp Pulse Resp BP Pulse Ox 97.7 F 71 17 105/62 95 05/03/18 11:38 05/03/18 11:38 05/03/18 11:38 05/03/18 11:38 05/03/18 11:38 Exam: PHYSICAL EXAMINATION: GENERAL APPEARANCE: The patient is alert, oriented and in no acute distress. HEENT: face red and slightly swollen. NECK: Supple without lymphadenopathy. HEART: Regular rate and rhythm. LUNGS: No crackles or wheezes are heard. ABDOMEN: Soft, nontender, nondistended with good bowel sounds heard. Inguinal area is normal. EXTREMITIES: Without cyanosis, clubbing or edema. NEUROLOGICAL: Gross nonfocal. SKIN: Warm and dry without any rash. - Assessment and Plan (1) Migraine Current Visit: Yes Status: Suspected Assessment and Plan: Surgery 2-year-old female with recent facial trauma/dental abscess, was on oral antibiotics at home, presented with facial pain and swelling. CT of face and neck showed minimum inflammatory change, no abscess. CT abdomen/pelvis revealed non-obstructive nephrolithiasis. She also complained rise sided headache with nausea and vomiting, her symptoms are suggestive of migraine, she reported history of migraine but is not documented in the medical record. - Patient received migraine cocktail this morning with relief of headache. - Given the minimum inflammation/possible infection on the CT scan, will continue IV clindamycin for now, plan to change to oral antibiotics tomorrow. - Continue supportive care, Imitrex when necessary ordered. Plan to discharge patient tomorrow. (2) Facial swelling Current Visit: Yes Status: Acute Assessment and Plan: CT of face showed minimal inflammatory change, no abscess. (3) Intractable nausea and vomiting Current Visit: Yes Status: Acute Assessment and Plan: Could be part of the symptoms of migraine, supportive care. (4) Anxiety Current Visit: No Status: Chronic Assessment and Plan: Continue home medications. (5) Depression Current Visit: No Status: Chronic Assessment and Plan: Continue home medication. (6) DVT prophylaxis Current Visit: Yes Status: Acute Assessment and Plan: SCDs. - Time Spent with Patient Total time spent is greater than 50% in coordination of care (as documented) at patient's floor/unit and/or counseling patient: Greater than 35 minutes Plan of Care Discussed with: patient Internal Medicine: Result - Labs CBC & Chem 7: 05/03/18 05:00 05/03/18 05:00 Labs: Short CBC 05/03/18 Range/Units 05:00 WBC 6.0 (4.3-11.1) K/mcL Hgb 13.8 (11.5-15.4) g/dL Hct 39.9 (35.3-44.9) % Plt Count 221 (140-400) K/mcL Neutrophils # 3.0 (1.6-8.9) K/mcL BMP 05/03/18 05:00 Sodium 141 Potassium 3.4 L Chloride 108 H Carbon Dioxide 28 BUN 5 L Creatinine 0.59 L Glucose 120 H Calcium 8.6 Consult Discharge Plan - Plan Referrals: Nhaomy Osman MD [Primary Care Provider] - (1) Migraine Qualifiers: Migraine type: without aura Status migrainosus presence: without status migrainosus Intractability: intractable Qualified Code(s): G43.019 - Migraine without aura, intractable, without status migrainosus (3) Intractable nausea and vomiting Qualifiers: Vomiting type: unspecified Qualified Code(s): R11.2 - Nausea with vomiting, unspecified (5) Depression Qualifiers: Depression Type: unspecified Qualified Code(s): F32.9 - Major depressive disorder, single episode, unspecified
[2018-05-03 18:02] LABS: Amphetamine Screen,Urine Positive ng/mL (Cutoff=1000); Barbiturate Screen,Urine Negative ng/mL (Cutoff=200); Benzodiazepines Screen,Urine Negative ng/mL (Cutoff=200); Cannabinoid Screen,Urine Positive ng/mL (Cutoff = 50); Cocaine Screen,Urine Negative ng/mL (Cutoff= 300); Opiate Screen,Urine Positive ng/mL (Cutoff=300); Phencyclidine Screen,Urine Negative ng/mL (Cutoff=25)
[2018-05-03] MEDS: Lurasidone 20 MG TABLET PO SCH (20:14)
[2018-05-04] MEDS: Clindamycin 600 MG/50 ML 600 MG/50 ML IV.SOLN IVPB SCH ×3 (00:39→15:54)
[2018-05-04] MEDS: Ondansetron 4 MG/2 ML VIAL IVP PRN ×3 (02:51→21:29)
[2018-05-04] MEDS: *HR* OxyCODONE/APAP 5/325 TABLET PO PRN ×3 (02:51→21:29)
[2018-05-04 07:01] LABS: BUN/Creatinine Ratio 11 (6-26); Blood Urea Nitrogen 7 mg/dL (6-20); Calcium 8.5 mg/dL (8.6-10.3); Carbon Dioxide 28 mEq/L (23-29); Chloride 106 mEq/L (98-107); Glucose 98 mg/dL (70-105); Osmolality,Calculated 288 (280-300); Potassium 3.6 mEq/L (3.5-5.1); Sodium 140 mEq/L (136-145); eGFR For Non-African Americans > 60 (> 60)
[2018-05-04] MEDS: Nicotine 21 MG PATCH.TD24 TD SCH (07:57)
--- NOTE | 2018-05-04 13:59 | Internal Med Progress Note ---
Hospitalist Progress Note - Encounter Date of Encounter: 05/04/18 Time of Encounter: 13:57 - Subjective Interval History: Patient reported improved facial pain and back pain, nausea and vomiting have improved. She denies fever, chills, or night sweats. She has no shortness breath or chest pain. - Exam Vitals: Temp Pulse Resp BP Pulse Ox 98.4 F 72 18 117/68 96 05/04/18 11:10 05/04/18 11:10 05/04/18 11:10 05/04/18 11:10 05/04/18 11:10 Exam: PHYSICAL EXAMINATION: GENERAL APPEARANCE: The patient is alert, oriented and in no acute distress. HEENT: Head is normocephalic. The sinuses are nontender. Pupils are equal and reactive. The nares are patent. Oropharynx clear without lesions. NECK: Supple without lymphadenopathy. HEART: Regular rate and rhythm. LUNGS: No crackles or wheezes are heard. ABDOMEN: Soft, nontender, nondistended with good bowel sounds heard. Inguinal area is normal. EXTREMITIES: Without cyanosis, clubbing or edema. NEUROLOGICAL: Gross nonfocal. SKIN: Warm and dry without any rash. - Assessment and Plan (1) Migraine Current Visit: Yes Status: Suspected Assessment and Plan: Surgery 2-year-old female with recent facial trauma/dental abscess, was on oral antibiotics at home, presented with facial pain and swelling. CT of face and neck showed minimal inflammatory change, no abscess. CT abdomen/pelvis revealed no nephrolithiasis. She also complained right sided headache with nausea and vomiting, her symptoms are suggestive of migraine, she reported history of migraine but is not documented in the medical record. Urine drug screen positive for Opioids, Amphetamine, and marijuna. - Patient received migraine cocktail yesterday with relief of headache. - Given the minimum inflammation/possible infection on the CT scan, will continue IV clindamycin for now, plan to change to oral antibiotics tomorrow. - Continue supportive care, Imitrex when necessary ordered. Plan to discharge patient tomorrow. (2) Facial swelling Current Visit: Yes Status: Acute Assessment and Plan: CT of face showed minimal inflammatory change, no abscess. (3) Intractable nausea and vomiting Current Visit: Yes Status: Acute Assessment and Plan: Could be part of the symptoms of migraine or side effect of Marijuna, supportive care. (4) Anxiety Current Visit: No Status: Chronic Assessment and Plan: Continue home medications. (5) Depression Current Visit: No Status: Chronic Assessment and Plan: Continue home medication. (6) DVT prophylaxis Current Visit: Yes Status: Acute Assessment and Plan: SCDs. - Time Spent with Patient Total time spent is greater than 50% in coordination of care (as documented) at patient's floor/unit and/or counseling patient: Greater than 35 minutes Plan of Care Discussed with: patient Internal Medicine: Result - Labs CBC & Chem 7: 05/03/18 05:00 05/04/18 06:19 Labs: BMP 05/04/18 06:19 Sodium 140 Potassium 3.6 Chloride 106 Carbon Dioxide 28 BUN 7 Creatinine 0.61 Glucose 98 Calcium 8.5 L Consult Discharge Plan - Plan Referrals: Nahomy Osman MD [Primary Care Provider] - (1) Migraine Qualifiers: Migraine type: without aura Status migrainosus presence: without status migrainosus Intractability: intractable Qualified Code(s): G43.019 - Migraine without aura, intractable, without status migrainosus (3) Intractable nausea and vomiting Qualifiers: Vomiting type: unspecified Qualified Code(s): R11.2 - Nausea with vomiting, unspecified (5) Depression Qualifiers: Depression Type: unspecified Qualified Code(s): F32.9 - Major depressive disorder, single episode, unspecified
[2018-05-04] MEDS: SUMAtriptan succinate 50 MG TABLET PO PRN (16:13)
[2018-05-04] MEDS: Lurasidone 20 MG TABLET PO SCH (21:32)
[2018-05-05] MEDS: SUMAtriptan succinate 50 MG TABLET PO PRN (00:20)
[2018-05-05] MEDS: Clindamycin 600 MG/50 ML 600 MG/50 ML IV.SOLN IVPB SCH (00:30)
[2018-05-05] MEDS: Ondansetron 4 MG/2 ML VIAL IVP PRN (06:10)
[2018-05-05] MEDS: *HR* OxyCODONE/APAP 5/325 TABLET PO PRN (06:10)
[2018-05-05 07:53] VITALS: BP 106/67
--- NOTE | 2018-05-05 09:05 | Discharge Summary ---
- NOTES TO OUTPATIENT PROVIDER Notes to Outpatient Provider: f/u with PCP within a week. Date of Encounter: 05/05/18 Time of Encounter: 09:01 - Discharge Diagnosis (1) Migraine Priority: Primary Status: Suspected Assessment and Plan: 32-year-old female with recent facial trauma/dental abscess, was on oral antibiotics at home, presented with facial pain and swelling. CT of face and neck showed minimal inflammatory change, no abscess. CT abdomen/pelvis revealed no nephrolithiasis. She also complained right sided headache with nausea and vomiting, her symptoms are suggestive of migraine, she reported history of migraine but is not documented in the medical record. Urine drug screen positive for Opioids, Amphetamine, and marijuna. - Patient received migraine cocktail yesterday with relief of headache. - Given the minimum inflammation/possible infection on the CT scan, IV clindamycin changed to oral. - Continue supportive care, Imitrex when necessary. Qualifiers: Migraine type: without aura Status migrainosus presence: without status migrainosus Intractability: intractable Qualified Code(s): G43.019 - Migraine without aura, intractable, without status migrainosus (2) Facial swelling Priority: Primary Status: Acute (3) Intractable nausea and vomiting Priority: Primary Status: Acute Qualifiers: Vomiting type: unspecified Qualified Code(s): R11.2 - Nausea with vomiting , unspecified (4) Anxiety Priority: Secondary Status: Chronic (5) Depression Priority: Secondary Status: Chronic Qualifiers: Depression Type: unspecified Qualified Code(s): F32.9 - Major depressive disorder, single episode, unspecified (6) DVT prophylaxis Priority: Primary Status: Acute Hospital course: Ms. Stafford is a 32 year old female with history of kidney stones. The patient recently was found to have a dental abscess and was started on flagyl and doxycycline at home. She started to develop severe headache with severe nausea and vomiting on the day of admission. face CT showed minimal inflammatory change , no abscess, neck CT is negative for acute changes. An abdominal CT failed to show any acute abnormalities. Urine drug screen is positive for opioid, amphetamine, and marijuana. Her symptoms were suspicious for migraine and she received migraine cocktail with relief of symptoms. Her labs were stable, vital signs were stable. She will be discharged home today with f/u with PCP. Discharge discussed with: patient Time spent discussing smoking cessation with patient: more than 10 minutes - Time Spent with Patient Total time spent providing and/or coordinating discharge services: Greater than 30 minutes - Discharge Medications Prescriptions: Clindamycin [Cleocin] 300 mg PO Q8HR #15 capsule Nicotine Patch [Nicoderm] 21 mg TD DAILY #30 patch.[email or web address] Home Medications: Tizanidine HCl 4 mg PO Q8H PRN 08/25/16 [History] Buspirone HCl [Buspar] 10 mg PO BID #60 tablet 07/25/17 [Rx] DULoxetine [Cymbalta] 60 mg PO DAILY 05/02/18 [History] Diclofenac Sodium [Voltaren] 50 mg PO Q8HR 05/02/18 [History] Lurasidone HCl [Latuda] 60 mg PO DAILY 05/02/18 [History] Oxycodone HCl/Acetaminophen [Percocet 5-325 mg Tablet] 1 tab PO Q6H PRN [History] Clindamycin [Cleocin] 300 mg PO Q8HR #15 capsule 05/05/18 [Rx] Nicotine Patch [Nicoderm] 21 mg TD DAILY #30 patch.[email or web address] 05/05/18 [Rx] Allergies/Adverse Reactions: 3 Allergy/AdvReac Type Severity Reaction Status Date / Time ceftriaxone [From Rocephin] Allergy Anaphylaxis Verified 05/02/18 11:48 cephalexin Allergy Anaphylaxis Verified 05/02/18 19:11 diphenhydramine Allergy Hives Verified 05/02/18 11:48 [From Benadryl] divalproex sodium Allergy Hives Verified 05/02/18 11:48 [From Depakote] Doxepin Allergy Hives Verified 05/02/18 11:48 famotidine [From Pepcid] Allergy Hives Verified 05/02/18 11:48 morphine Allergy Hives Verified 05/02/18 11:48 naproxen Allergy Rash Verified 05/02/18 11:48 Penicillins Allergy Anaphylaxis Verified 05/02/18 11:48 tramadol Allergy Hives Verified 05/02/18 11:48 Tramazoline Allergy Hives Verified 05/02/18 11:48 ziprasidone [From Geodon] Allergy Hives Verified 05/02/18 11:48 sertraline [From Zoloft] AdvReac Depression Verified 05/02/18 11:48 Date of admission: 05/02/18 17:19 Primary care physician: Nahomy Osman Anticipated date of discharge: 05/05/18 - Constitutional Vitals: Temp Pulse Resp BP Pulse Ox 98.1 F 48 16 106/67 95 05/05/18 07:50 05/05/18 07:50 05/05/18 07:50 05/05/18 07:50 05/05/18 07:50 General appearance: Present: A&O X 3, answers questions appropriately Exam: PHYSICAL EXAMINATION: GENERAL APPEARANCE: The patient is alert, oriented and in no acute distress. HEENT: Head is normocephalic. The sinuses are nontender. Pupils are equal and reactive. The nares are patent. Oropharynx clear without lesions. NECK: Supple without lymphadenopathy. HEART: Regular rate and rhythm. LUNGS: No crackles or wheezes are heard. ABDOMEN: Soft, nontender, nondistended with good bowel sounds heard. Inguinal area is normal. EXTREMITIES: Without cyanosis, clubbing or edema. NEUROLOGICAL: Gross nonfocal. SKIN: Warm and dry without any rash. - Patient Status Disposition: Home, Self-Care Condition: Good Functional capacity at discharge: independent ambulation Overall status at discharge: patient is back to baseline - Discharge Instructions Follow Up With: Nahomy Osman MD [Primary Care Provider] - - Diet and Activity Activity: increase activity as tolerated Diet: advance to your usual diet
[2018-05-05] MEDS: Nicotine 21 MG PATCH.TD24 TD SCH (09:10)
== END 2018-05-05 13:20 | disposition home or self-care (01) ==
LOC: EMEROO 11:32 → 3ANU 11:32
PROVIDERS: ADMIT Internal Medicine Cardiovascular Disease; ATTEND Internal Medicine Cardiovascular Disease

== ENCOUNTER 2021-06-11 23:25 | Observation (INO) ==
[2021-06-12] MEDS ORDERED: Dexamethasone Sodium Phos/PF 10 MG/ML VIAL IVP ONE (03:44)
[2021-06-12] MEDS ORDERED: *HR* HYDROcodone/Acet 5/325 mg TABLET PO ONE (03:44)
[2021-06-12] MEDS ORDERED: Isovue-370 500 ML BOTTLE IVP ONE (04:08)
[2021-06-12] MEDS ORDERED: Ondansetron 4 MG/2 ML VIAL IVP ONE (05:13)
[2021-06-12 05:35] LABS: Basophils # 0.1 K/mcL (0.0-0.2); Basophils % 0.7 %; Eosinophils # 0.1 K/mcL (0.0-0.6); Eosinophils % 0.3 %; Hematocrit 45.9 % (35.3-44.9); Hemoglobin 15.2 g/dL (11.5-15.4); Immature Granulocytes % 1.8 % (0-4); Lymphocytes # 4.7 K/mcL (0.6-4.6); Lymphocytes % 23.1 %; Mean Corpuscular HGB Conc 33.1 g/dL (31.6-35.5); Mean Corpuscular Hemoglobin 31.3 pg (28.0-33.3); Mean Corpuscular Volume 94.4 fL (83.0-100.0); Mean Platelet Volume 10.9 fL (9.4-12.4); Monocytes # 1.1 K/mcL (0.0-1.3); Monocytes % 5.2 %; Platelet Count 292 K/mcL (140-400); Red Blood Count 4.86 M/mcL (3.82-4.97); Red Cell Distribution Width 13.4 % (11.5-14.5); Segmented Neutrophils % 68.9 %
[2021-06-12 05:37] LABS: White Blood Count 20.3 K/mcL (4.3-11.1)
[2021-06-12 05:56] LABS: BUN/Creatinine Ratio 24 (6-26); Blood Urea Nitrogen 15 mg/dL (6-20); Calcium 9.3 mg/dL (8.6-10.3); Carbon Dioxide 32 mEq/L (23-29); Chloride 101 mEq/L (98-107); Glucose 70 mg/dL (70-105); Osmolality,Calculated 289 (280-300); Potassium 4.3 mEq/L (3.5-5.1); Sodium 140 mEq/L (136-145); eGFR For African Americans > 60 (> 60); eGFR For Non-African Americans > 60 (> 60)
[2021-06-12 05:57] LABS: Troponin I < 0.03 ng/mL (< 0.04)
[2021-06-12 06:13] LABS: Influenza A PCR Negative (Negative); Influenza B PCR Negative (Negative); Resp. Syncytial Virus PCR Negative (Negative)
[2021-06-12 06:15] LABS: SARS-CoV-2 by PCR (In House) Negative (Negative)
[2021-06-12] MEDS ORDERED: Furosemide 40 MG/4 ML VIAL IVP ONE (07:37)
[2021-06-12] MEDS ORDERED: Naloxone 0.4 MG/ML INJ IVP PRN (10:55)
[2021-06-12] MEDS ORDERED: Melatonin 3 MG TABLET PO PRN (10:55)
[2021-06-12] MEDS ORDERED: Perflutren Lipid Microsphere 1.3 ML in 0.9 % Sodium Chloride 8.7 ML IVP PRN (10:59)
[2021-06-12 12:29] LABS: INR 1.1; Prothrombin Time 11.8 Seconds (9.4-12.1)
[2021-06-12 12:34] LABS: Albumin 4.2 g/dL (3.5-5.7); Albumin/Globulin Ratio 1.1 (1.1-2.2); Bilirubin,Direct 0.1 mg/dL (0.0-0.2); Bilirubin,Indirect 0.2 mg/dL (0.0-1.0); Bilirubin,Total 0.3 mg/dL (0.3-1.0); Globulin 3.8 g/dL (2.4-3.5)
[2021-06-12 12:48] LABS: Thyroid Stimulating Hormone 0.89 mcIU/mL (0.340-5.600)
[2021-06-12] MEDS ORDERED: Morphine Sulfate 2 MG/ML SYRINGE IVP ONE (15:36)
[2021-06-12] MEDS: Ondansetron 4 MG/2 ML VIAL IVP PRN ×2 (16:18→23:57)
[2021-06-12] MEDS: Ketorolac 15 MG/ML VIAL IVP PRN ×2 (17:43→23:56)
[2021-06-12 18:05] LABS: Adenovirus Not Detected (Not Detect); Coronavirus 229E Not Detected (Not Detect); Coronavirus HKU1 Not Detected (Not Detect); Coronavirus NL63 Not Detected (Not Detect); Coronavirus OC43 Not Detected (Not Detect); Human Metapneumovirus Not Detected (Not Detect); Human Rhinovirus/Enterovirus Not Detected (Not Detect); SARS-CoV-2 Not Detected (Not Detect)
[2021-06-12 18:06] LABS: Bordetella Pertussis Not Detected (Not Detect); Chlamydophila pneumoniae Not Detected (Not Detect); Influenza A Subtype 2009 H1 Not Detected (Not Detect); Influenza B Not Detected (Not Detect); Mycoplasma pneumoniae Not Detected (Not Detect); Parainfluenza Virus 1 Not Detected (Not Detect); Parainfluenza Virus 2 Not Detected (Not Detect); Parainfluenza Virus 3 Not Detected (Not Detect); Parainfluenza Virus 4 Not Detected (Not Detect); Respiratory Syncytial Virus Not Detected (Not Detect)
[2021-06-12] MEDS: hydrOXYzine pamoate 25 MG CAPSULE PO PRN (22:21)
[2021-06-13 00:38] LABS: Bacteria,Urine Few per hpf (None-Few); Bilirubin,Urine Negative (Negative); Blood,Urine Large (Negative); Clarity,Urine Turbid (Clear); Color,Urine Yellow (Yellow); Glucose,Urine (UA) Normal (Normal); Ketones,Urine Trace mg/dL (Negative); Leukocyte Esterase,Urine Negative (Negative); Mucus,Urine Few per lpf (None-Few); Nitrite,Urine Negative (Negative); PH,Urine 6.5 pH Units (5.0-8.0); Protein,Urine 50 mg/dL (Neg-Trace); RBC,Urine TNTC per hpf (0-3); Specific Gravity,Urine > 1.030 (1.010-1.025); Squamous Epithelial Cell,Urine Moderate per hpf (None-Few); Urobilinogen,Urine Normal (Normal)
[2021-06-13] MEDS ORDERED: hydrOXYzine pamoate 25 MG CAPSULE PO PRN (00:40)
[2021-06-13] MEDS ORDERED: Ipratropium/Albuterol Neb 3 ML IH PRN (01:13)
[2021-06-13 02:05] LABS: Basophils # 0.1 K/mcL (0.0-0.2); Basophils % 0.4 %; Eosinophils % 0.2 %; Hematocrit 44.9 % (35.3-44.9); Hemoglobin 14.9 g/dL (11.5-15.4); Immature Granulocytes % 1.2 % (0-4); Lymphocytes # 4.8 K/mcL (0.6-4.6); Lymphocytes % 22.8 %; Mean Corpuscular HGB Conc 33.2 g/dL (31.6-35.5); Mean Corpuscular Hemoglobin 31.6 pg (28.0-33.3); Mean Corpuscular Volume 95.3 fL (83.0-100.0); Mean Platelet Volume 10.9 fL (9.4-12.4); Monocytes # 1.5 K/mcL (0.0-1.3); Monocytes % 6.9 %; Neutrophils # 14.4 K/mcL (1.6-8.9); Platelet Count 258 K/mcL (140-400); Red Blood Count 4.71 M/mcL (3.82-4.97); Red Cell Distribution Width 13.6 % (11.5-14.5); Segmented Neutrophils % 68.5 %; White Blood Count 21.1 K/mcL (4.3-11.1)
[2021-06-13 02:18] LABS: Amphetamine Screen,Urine Negative ng/mL (Cutoff=1000); Barbiturate Screen,Urine Negative ng/mL (Cutoff=200); Benzodiazepines Screen,Urine Negative ng/mL (Cutoff=200); Cannabinoid Screen,Urine Negative ng/mL (Cutoff = 50); Cocaine Screen,Urine Negative ng/mL (Cutoff= 300); Opiate Screen,Urine Positive ng/mL (Cutoff=300); Phencyclidine Screen,Urine Negative ng/mL (Cutoff=25)
[2021-06-13 02:47] LABS: BUN/Creatinine Ratio 32 (6-26); Blood Urea Nitrogen 26 mg/dL (6-20); Calcium 9.3 mg/dL (8.6-10.3); Carbon Dioxide 22 mEq/L (23-29); Chloride 97 mEq/L (98-107); Glucose 133 mg/dL (70-105); Lipase 28 Units/L (11-82); Osmolality,Calculated 289 (280-300); Potassium 4.4 mEq/L (3.5-5.1); Sodium 136 mEq/L (136-145); eGFR For African Americans > 60 (> 60); eGFR For Non-African Americans > 60 (> 60)
[2021-06-13] MEDS ORDERED: *HR* HYDROcodone/Acet 5/325 mg TABLET PO ONE (03:01)
[2021-06-13] MEDS: *HR* Heparin 5,000 UNIT/ML VIAL SQ SCH ×2 (05:22→21:18)
[2021-06-13] MEDS: Ketorolac 15 MG/ML VIAL IVP PRN ×2 (06:27→21:30)
[2021-06-13] MEDS: amLODIPine 5 MG TABLET PO SCH (08:16)
[2021-06-13] MEDS: Nicotine 14 MG PATCH.TD24 TD SCH (08:17)
[2021-06-13] MEDS: tiZANidine 4 MG TABLET PO PRN (08:23)
[2021-06-13] MEDS: hydrOXYzine pamoate 25 MG CAPSULE PO PRN (08:23)
[2021-06-13] MEDS ORDERED: Propranolol LA (24 HR) 80 MG CAP.SA.24H PO SCH (09:00)
[2021-06-13] MEDS: Ondansetron 4 MG/2 ML VIAL IVP PRN ×2 (11:05→21:30)
[2021-06-13] MEDS ORDERED: lamoTRIgine 100 MG TABLET PO SCH (21:00)
[2021-06-14 04:48] LABS: Hemoglobin 14.2 g/dL (11.5-15.4); Mean Corpuscular Hemoglobin 31.3 pg (28.0-33.3); Mean Corpuscular Volume 94.7 fL (83.0-100.0); Mean Platelet Volume 10.7 fL (9.4-12.4); Platelet Count 191 K/mcL (140-400); Red Blood Count 4.54 M/mcL (3.82-4.97); Red Cell Distribution Width 13.5 % (11.5-14.5); White Blood Count 11.3 K/mcL (4.3-11.1)
[2021-06-14 05:07] LABS: BUN/Creatinine Ratio 31 (6-26); Blood Urea Nitrogen 29 mg/dL (6-20); Calcium 8.6 mg/dL (8.6-10.3); Carbon Dioxide 33 mEq/L (23-29); Chloride 101 mEq/L (98-107); Chol/HDL Ratio 3.2 (0-4.9); Cholesterol 161 mg/dL (< 200); Glucose 90 mg/dL (70-105); HDL Cholesterol 51 mg/dL (40-59); LDL Cholesterol,Calculated 74 mg/dL (< 100); Osmolality,Calculated 297 (280-300); Potassium 4.4 mEq/L (3.5-5.1); Sodium 141 mEq/L (136-145); Triglycerides 179 mg/dL (< 150); eGFR For African Americans > 60 (> 60); eGFR For Non-African Americans > 60 (> 60)
[2021-06-14 05:10] LABS: Estimated Average Glucose 137 mg/dl; Hemoglobin A1C 6.4 %
[2021-06-14] MEDS: *HR* Heparin 5,000 UNIT/ML VIAL SQ SCH (05:41)
[2021-06-14] MEDS ORDERED: Regadenoson 0.4 MG/5 ML SYRINGE IVP ONE (06:16)
[2021-06-14] MEDS: tiZANidine 4 MG TABLET PO PRN (09:27)
[2021-06-14] MEDS: Nicotine 14 MG PATCH.TD24 TD SCH (09:28)
[2021-06-14] MEDS: amLODIPine 5 MG TABLET PO SCH (09:28)
[2021-06-14 11:20] VITALS: BP 167/81; PULSE 80; TEMP 97.9
[2021-06-14 12:08] VITALS: O2SAT 93
[2021-06-14] MEDS: Ketorolac 15 MG/ML VIAL IVP PRN (13:37)
[2021-06-14] MEDS: Ondansetron 4 MG/2 ML VIAL IVP PRN (13:37)
== END 2021-06-14 16:00 | disposition home or self-care (01) ==
LOC: EMEROOARM 23:25 → 2ANU 23:25 → SUATTDRO 06-12 12:50 → 2ANU 06-12 15:45
PROVIDERS: ADMIT Internal Medicine; ATTEND Internal Medicine

== ENCOUNTER 2022-01-02 16:55 | Inpatient (IN) ==
[2022-01-02] MEDS ORDERED: ALPRAZolam 0.5 MG TABLET PO ONE (18:00)
[2022-01-02 18:10] LABS: Basophils # 0.1 K/mcL (0.0-0.2); Basophils % 0.7 %; Eosinophils # 0.3 K/mcL (0.0-0.6); Eosinophils % 2.6 %; Hematocrit 48.2 % (35.3-44.9); Hemoglobin 16.2 g/dL (11.5-15.4); Immature Granulocytes % 0.5 % (0-4); Lymphocytes # 2.3 K/mcL (0.6-4.6); Lymphocytes % 22.6 %; Mean Corpuscular HGB Conc 33.6 g/dL (31.6-35.5); Mean Corpuscular Volume 92.2 fL (83.0-100.0); Mean Platelet Volume 10.8 fL (9.4-12.4); Monocytes # 0.5 K/mcL (0.0-1.3); Monocytes % 4.4 %; Neutrophils # 7.2 K/mcL (1.6-8.9); Platelet Count 265 K/mcL (140-400); Red Blood Count 5.23 M/mcL (3.82-4.97); Red Cell Distribution Width 12.9 % (11.5-14.5); Segmented Neutrophils % 69.2 %; White Blood Count 10.4 K/mcL (4.3-11.1)
[2022-01-02 18:11] LABS: Amphetamine Screen,Urine Negative ng/mL (Cutoff=1000); Barbiturate Screen,Urine Negative ng/mL (Cutoff=200); Benzodiazepines Screen,Urine Negative ng/mL (Cutoff=200); Cannabinoid Screen,Urine Negative ng/mL (Cutoff = 50); Cocaine Screen,Urine Negative ng/mL (Cutoff= 300); Opiate Screen,Urine Negative ng/mL (Cutoff=300); Phencyclidine Screen,Urine Negative ng/mL (Cutoff=25)
[2022-01-02 18:18] LABS: Amorphous Sediment,Urine Few per hpf (None-Few); Bilirubin,Urine Negative (Negative); Blood,Urine Negative (Negative); Clarity,Urine Turbid (Clear); Color,Urine Light-Yellow (Yellow); Glucose,Urine (UA) Normal (Normal); Ketones,Urine Negative (Negative); Leukocyte Esterase,Urine Negative (Negative); Nitrite,Urine Negative (Negative); Protein,Urine Negative (Neg-Trace); Specific Gravity,Urine 1.007 (1.010-1.025); Squamous Epithelial Cell,Urine Few per hpf (None-Few); Urobilinogen,Urine Normal (Normal); WBC,Urine 0-3 per hpf (0-3)
[2022-01-02 18:24] LABS: Estimated Average Glucose 120 mg/dl; Hemoglobin A1C 5.8 %
[2022-01-02 18:31] LABS: Acetaminophen < 10 mcg/mL (10-20); BUN/Creatinine Ratio 11 (6-26); Blood Urea Nitrogen 7 mg/dL (6-20); Calcium 9.3 mg/dL (8.6-10.3); Carbon Dioxide 27 mEq/L (23-29); Chloride 104 mEq/L (98-107); Ethanol < 10 mg/dL (Less than 10); Glucose 112 mg/dL (70-105); Osmolality,Calculated 287 (280-300); Potassium 4.1 mEq/L (3.5-5.1); Salicylate < 2.5 mg/dL (15.0-30.0); Sodium 139 mEq/L (136-145); eGFR For African Americans > 60 (> 60); eGFR For Non-African Americans > 60 (> 60)
[2022-01-02 18:43] LABS: Thyroid Stimulating Hormone 1.139 mcIU/mL (0.340-5.600)
[2022-01-02] MEDS ORDERED: lamoTRIgine 25 MG TABLET PO SCH (21:15)
[2022-01-02 21:24] LABS: Influenza A PCR Negative (Negative); Influenza B PCR Negative (Negative); Resp. Syncytial Virus PCR Negative (Negative)
[2022-01-02 21:25] LABS: SARS-CoV-2 by PCR (In House) Negative (Negative)
[2022-01-02] MEDS ORDERED: haloperidoL 5 MG TABLET PO PRN (22:04)
[2022-01-02] MEDS ORDERED: Haloperidol Lactate 5 MG/ML VIAL IM PRN (22:04)
[2022-01-02] MEDS ORDERED: traZODone 50 MG TABLET PO PRN (22:04)
[2022-01-02] MEDS ORDERED: Acetaminophen 325 MG TABLET PO PRN (22:04)
[2022-01-02] MEDS ORDERED: *HR* LORazepam 1 MG TABLET PO PRN (22:04)
[2022-01-02] MEDS ORDERED: *HR* LORazepam 2 MG/ML VIAL IM PRN (22:04)
[2022-01-03] MEDS: Propranolol LA (24 HR) 60 MG CAP.SA.24H PO SCH ×2 (02:24→20:15)
[2022-01-03] MEDS ORDERED: MOM Conc 10 ML UD.LIQ PO PRN (08:05)
[2022-01-03] MEDS ORDERED: Mag Hydrox/Al Hydrox/Simeth 30 ML UDC PO PRN (08:05)
[2022-01-03] MEDS ORDERED: Propranolol LA (24 HR) 60 MG CAP.SA.24H PO SCH (09:00)
[2022-01-03] MEDS ORDERED: Budesonide/Formoterol 160/4.5 1 PUFF INH IH SCH (10:00)
[2022-01-03] MEDS: Nicotine 21 MG PATCH.TD24 TD SCH (11:59)
[2022-01-03] MEDS: tiZANidine 4 MG TABLET PO PRN ×2 (12:00→20:14)
[2022-01-03] MEDS: *HR* Metformin 500 MG TABLET PO SCH (12:03)
[2022-01-03] MEDS ORDERED: clonazePAM 0.5 MG TABLET PO SCH (13:00)
[2022-01-03] MEDS: clonazePAM 0.5 MG TABLET PO PRN (14:19)
[2022-01-03] MEDS: hydrOXYzine pamoate 25 MG CAPSULE PO PRN (20:14)
[2022-01-04] MEDS ORDERED: NON-FORMULARY MEDICATION 1 EACH EACH PO SCH (09:00)
[2022-01-04] MEDS ORDERED: VRAYLAR 1.5 MG CAPSULE PO SCH (09:00)
[2022-01-04] MEDS: *HR* Metformin 500 MG TABLET PO SCH (09:46)
[2022-01-04] MEDS: tiZANidine 4 MG TABLET PO PRN (09:50)
[2022-01-04] MEDS: clonazePAM 0.5 MG TABLET PO PRN (09:50)
[2022-01-04] MEDS: Nicotine 21 MG PATCH.TD24 TD SCH (09:51)
[2022-01-04] MEDS: VRAYLAR 1.5 MG CAPSULE PO SCH (17:17)
[2022-01-04] MEDS: Propranolol LA (24 HR) 60 MG CAP.SA.24H PO SCH (20:27)
[2022-01-04] MEDS: hydrOXYzine pamoate 25 MG CAPSULE PO PRN (20:29)
[2022-01-05] MEDS: *HR* Metformin 500 MG TABLET PO SCH (10:07)
[2022-01-05] MEDS: Nicotine 21 MG PATCH.TD24 TD SCH (10:08)
[2022-01-05] MEDS: VRAYLAR 1.5 MG CAPSULE PO SCH (10:15)
[2022-01-05] MEDS: clonazePAM 0.5 MG TABLET PO PRN (17:09)
[2022-01-05] MEDS: Propranolol LA (24 HR) 60 MG CAP.SA.24H PO SCH (20:36)
[2022-01-05] MEDS: hydrOXYzine pamoate 25 MG CAPSULE PO PRN (20:37)
[2022-01-05] MEDS ORDERED: VRAYLAR 1.5 MG CAPSULE PO SCH (21:00)
[2022-01-06 09:24] VITALS: BP 106/72; PULSE 62; TEMP 97.6; O2SAT 94
[2022-01-06] MEDS: Nicotine 21 MG PATCH.TD24 TD SCH (09:47)
[2022-01-06] MEDS: *HR* Metformin 500 MG TABLET PO SCH (09:49)
[2022-01-06] MEDS: clonazePAM 0.5 MG TABLET PO PRN (11:10)
== END 2022-01-06 15:50 | disposition home or self-care (01) | DRG 751 ==
LOC: EMEROOARM 16:55 → 1ANU 21:46
PROVIDERS: ADMIT Psychiatry & Neurology Psychiatry; ATTEND Psychiatry & Neurology Psychiatry